=== PATIENT | male | born 1935 | race Caucasian/White ===

== ENCOUNTER 2017-04-29 19:03 | Emergency (ER) | payer MEDICARE, BC ==
--- NOTE | 2017-04-29 20:39 | ED ---
I, Clay,Karli, scribed for Benjamin Hugo MD on 04/29/17 at 1920 . Shortness of Breath - HPI Summary HPI Summary: This 81 y/o male presents to ED for acute SOB since 1200 PM. Positive productive cough with clear sputum, cough-related CP. Cough has been chronicc since 2 months ago, and pt reports having trouble sleeping due to persistent cough. Negative fever. Temperature of 99.6 F is noted at triage. PMHx significant for right lung CA with ongoing chemo. - History of Current Complaint Chief Complaint: EDShortnessOfBreath Time Seen by Provider: 04/29/17 19:14 Hx Obtained From: Patient, Medical Records Onset/Duration: Sudden Onset, Still Present Dyspnea At: Rest Aggrevating Factors: Nothing Alleviating Factors: Nothing Associated Signs & Symptoms: Cough (Productive) - clear sputum, Chest Pain w/ Cough - Allergy/Home Medications Allergies/Adverse Reactions: Allergies Allergy/AdvReac Type Severity Reaction Status Date / Time Ciprofloxacin [From Cipro] Allergy Severe Hives Verified 04/29/17 19:06 Penicillins Allergy Rash Verified 04/29/17 19:06 PMH/Surg Hx/FS Hx/Imm Hx Endocrine/Hematology History: Denies: Hx Diabetes Cardiovascular History: Reports: Other Cardiovascular Problems/Disorders Denies: Hx Congestive Heart Failure, Hx Hypertension Respiratory History: Reports: Hx Lung Cancer, Other Respiratory Problems/ Disorders - LUNG CA History: Reports: Other Problems/Disorders - prostate ca, prostatectomy Denies: Hx Dialysis, Hx Renal Disease Sensory History: Reports: Hx Contacts or Glasses Denies: Hx Cataracts, Hx Eye Injury, Hx Eye Prosthesis, Hx Glaucoma, Hx Legally Blind, Hx Macular Degeneration, Hx Vision Problem, Hx Deafness, Hx Hearing Aid, Hx Hearing Problem, Other Sensory Impairments Opthamlomology History: Reports: Hx Contacts or Glasses Denies: Hx Cataracts, Hx Eye Injury, Hx Eye Prosthesis, Hx Glaucoma, Hx Legally Blind, Hx Macular Degeneration, Hx Vision Problem, Other Sensory Impairments - Cancer History Cancer Type, Location and Year: prostate, basal cell carcinomia of scalp, Hx Chemotherapy: No Hx Radiation Therapy: No Hx Palliative Cancer Treatment: No - Surgical History Surgery Procedure, Year, and Place: prostatectomy, hernia repair Infectious Disease History: No Infectious Disease History: Denies: Hx Clostridium Difficile, Hx Hepatitis, Hx Human Immunodeficiency Virus (HIV), Hx of Known/Suspected MRSA, Hx Shingles, Hx Tuberculosis, Hx Known/ Suspected VRE, Hx Known/Suspected VRSA, History Other Infectious Disease, Traveled Outside the [place] in Last 30 Days - Family History Known Family History: Positive: Cardiac Disease - Father with [place] in age 69. - Social History Alcohol Use: Daily Alcohol Amount: glass of wine daily Substance Use Type: Reports: None Smoking Status (MU): Current Every Day Smoker Type: Cigarettes Review of Systems Negative: Fever Positive: Chest Pain - cough-related Positive: Shortness Of Breath, Cough - productive with clear sputum All Other Systems Reviewed And Are Negative: Yes Physical Exam Triage Information Reviewed: Yes Vital Signs On Initial Exam: Initial Vitals Temp Pulse Resp BP Pulse Ox 99.6 F 97 18 110/56 95 04/29/17 19:09 04/29/17 19:09 04/29/17 19:09 04/29/17 19:09 04/29/17 19:09 Vital Signs Reviewed: Yes Appearance: Positive: Ill-Appearing - chronically, Thin Skin: Positive: Warm Head/Face: Positive: Normal Head/Face Inspection Eyes: Positive: THERON ENT: Positive: Hearing grossly normal Neck: Positive: Supple Respiratory/Lung Sounds: Positive: Breath Sounds Present, Decreased Breath Sounds - mild generalized, Wheezes - occass Cardiovascular: Positive: RRR Abdomen Description: Positive: Nontender, Soft Bowel Sounds: Positive: Present Musculoskeletal: Positive: Strength/ROM Intact Neurological: Positive: Alert, Oriented to Person Place, Time Diagnostics - Vital Signs Vital Signs Temp Pulse Resp BP Pulse Ox 04/29/17 19:09 99.6 F 97 18 110/56 95 - Laboratory Result Diagrams: 04/29/17 20:55 04/29/17 20:55 Lab Statement: Any lab studies that have been ordered have been reviewed, and results considered in the medical decision making process. - Radiology CXR Xray Interpretation: Positive (See Comments) - Hyperinflated lung treviño. Right paratracheal density in the region where prior right peritracheal mass is present. This likely represents post treatment change. Radiology Interpretation Completed By: Radiologist - CT CTA Chest/Thorax CT Interpretation: Positive (See Comments) - Cavitary partially calcified suprahilar mass on the right consistent with neoplasm. Emphysema. Opacified segmental bronchi in the right lower lobe possibly with retained secretions. This may be contributing to the pt's SOB. CT Interpretation Completed By: Radiologist - EKG 1917 Cardiac Rate: NL - 91 bpm EKG Rhythm: Sinus Rhythm Re-Evaluation - Re-Evaluation First Eval Re-Evaluation Time: 21:29 Change: Improved - results d/w pt Comment: Respiratory therapist paged. Course/Dx - Course Assessment/Plan: This 81 y/o male presents to ED for acute onset of SOB since 1200 PM. Positive productive cough with clear sputum and cough-related CP. PMHx is significant for right Lung CA with ongoing chemo. Blood work is unremarkable except mild anemia. CTA chest/thorax is ordered to r/o any blood clotts and noted with: Cavitary partially calcified suprahilar mass on the right consistent with neoplasm. Emphysema. Opacified segmental bronchi in the right lower lobe possibly with retained secretions. This may be contributing to the pt 's SOB. Pt is given duoneb and respiratory therapy treatment during ED course. Pt is discharged home. - Diagnoses Provider Diagnoses: Shortness of breath Discharge - Discharge Plan Condition: Improved Disposition: HOME Patient Education Materials: Dyspnea (ED) Referrals: Liv Van MD [Primary Care Provider] - 2 Days The documentation as recorded by the Clay moreno Soohyun accurately reflects the service I personally performed and the decisions made by me, Benjamin Hugo MD.
--- NOTE | 2017-04-29 20:45 | RAD ---
Indication: Shortness of breath. 2 views of the chest including dual energy PA views demonstrates hyperinflated lung treviño. Nasogastric tube is in place. Right apical and peritracheal thickening is noted. This is most likely due to post radiation change. IMPRESSION: Hyperinflated lung treviño. Right paratracheal density in the region where prior right peritracheal mass is present. This likely represents post treatment change.
[2017-04-29 21:02] LABS: Hematocrit 31 % (42-52); Hemoglobin 10.3 g/dl (14.0-18.0); Mean Corpuscular HGB Conc 33 g/dl (31-36); Mean Corpuscular Hemoglobin 34 pg (27-31); Mean Corpuscular Volume 103 fL (80-94); Mean Platelet Volume 8 um3 (7.4-10.4); Red Cell Distribution Width 21 % (10.5-15); White Blood Count 6.9 10^3/ul (3.5-10.8)
[2017-04-29 21:04] LABS: Add Diff/Slide Review? Slide Review Added; Comments Flag Yes
[2017-04-29 21:17] LABS: Albumin 3.5 g/dL (3.2-5.2); BUN/Creatinine Ratio 21.3 (8-20); Calcium 8.6 mg/dL (8.6-10.3); EGFR African American 99.3 (>60); EGFR Non-African American 77.2 (>60); Globulin 2.6 g/dL (2-4); Total Bilirubin 0.7 mg/dL (0.2-1.0); Total Protein 6.1 g/dL (6.4-8.9)
[2017-04-29 21:19] LABS: Troponin I 0.02 ng/mL (<0.04)
[2017-04-29] MEDS ORDERED: Albuterol/Ipratropium NEB.SOL* Albuterol 2.5 MG/Ipratropium 0.5 MG 3 ML INH ONE (21:28)
[2017-04-29] MEDS ORDERED: Iohexol 350* (CONTRAST) 500 ML MDV IV ONE (22:15)
[2017-04-29] MEDS ORDERED: LORazepam INJ* 2 MG/ML 1 ML VIAL IV PUSH ONE (23:29)
[2017-04-29] MEDS ORDERED: LORazepam INJ* 2 MG/ML 1 ML VIAL ONE (23:31)
[2017-04-30 01:34] VITALS: BP 99/55
--- NOTE | 2017-04-30 07:45 | RAD ---
HISTORY: Acute shortness of breath, history of cancer COMPARISONS: March 01, 2017 TECHNIQUE: Multiple contiguous axial CT scans of the chest were obtained after the administration of nonionic intravenous contrast, timed to the pulmonary arterial phase of contrast enhancement.. Coronal and sagittal multiplanar reformations are also submitted for review. FINDINGS: NECK AND THYROID: The lower neck and thyroid are unremarkable. CHEST WALL: There is no lower cervical, axillary, or supraclavicular lymphadenopathy by size criteria. HEART AND PERICARDIUM: The heart is unremarkable. AORTA AND PULMONARY VASCULATURE: There is no pulmonary arterial filling defect to suggest pulmonary embolism. There is no linear filling defect within the aorta to suggest aortic dissection. There is atherosclerosis of the thoracic aorta which is tortuous. MEDIASTINUM: Again noted is a right para mediastinal mass. This is cavitary and partially calcified. A catheter segment has increased in size compared to March 01, 2017. DB: There is no hilar lymphadenopathy by size criteria. AIRWAY AND ESOPHAGUS: There is opacification of segmental bronchi in the right lower lobe suggestive of mucus plugging LUNG PARENCHYMA: As noted above, there is a right upper lobe paramediastinal mass. There is centrilobular emphysema of the lung apices. PLEURA: No pleural abnormalities are noted. UPPER ABDOMEN: There is a nonobstructing right renal calyceal stone BONES AND SOFT TISSUES: There is a scoliotic curvature of the spine. Degenerative changes are noted. OTHER: None. IMPRESSION: 1. AGAIN NOTED IS A CAVITARY, PARTIALLY CALCIFIED RIGHT UPPER LOBE PARAMEDIASTINAL MASS THE CAVITARY PORTION HAS INCREASED IN SIZE COMPARED TO MARCH 01, 2017. 2. NO PULMONARY ARTERIAL FILLING DEFECT TO SUGGEST PULMONARY WAS. 3. THERE IS OPACIFICATION OF THE SEGMENTAL AIRWAYS OF THE RIGHT LOWER LOBE SUGGESTIVE OF MUCOUS PLUGGING IN THE CORRECT CLINICAL SETTING
== END 2017-04-30 01:33 | disposition home or self-care (01) ==
LOC: ED 19:03
DX: R06.02 Shortness of breath (principal); R05 Cough; C78.01 Secondary malignant neoplasm of right lung; Z85.46 Personal history of malignant neoplasm of prostate; Z90.79 Acquired absence of other genital organ(s); Z88.1 Allergy status to other antibiotic agents; Z88.0 Allergy status to penicillin; F17.210 Nicotine dependence, cigarettes, uncomplicated
CPT/HCPCS: 36415; 71020; 71275; 80053; 83605; 84484; 85025; 93005; 96374; 99284; A9270-GY; J2060; Q9967

== ENCOUNTER 2017-05-03 17:32 | Inpatient (IN) | payer MEDICARE, BC ==
[2017-05-03] MEDS ORDERED: Albuterol/Ipratropium NEB.SOL* Albuterol 2.5 MG/Ipratropium 0.5 MG 3 ML ONE (18:01)
[2017-05-03] MEDS ORDERED: Albuterol/Ipratropium NEB.SOL* Albuterol 2.5 MG/Ipratropium 0.5 MG 3 ML INH ONE (18:21)
[2017-05-03] MEDS ORDERED: methylPREDNISolone 125 MG* 2 ML VIAL IV ONE (18:22)
[2017-05-03] MEDS ORDERED: Albuterol 2.5 MG/3 ML NEB.SOL* (0.083%) INH ONE (18:22)
[2017-05-03] MEDS ORDERED: Albuterol 2.5 MG/3 ML NEB.SOL* (0.083%) ONE (18:23)
[2017-05-03 18:46] LABS: Hematocrit 32 % (42-52); Hemoglobin 10.2 g/dl (14.0-18.0); Mean Corpuscular HGB Conc 32 g/dl (31-36); Mean Corpuscular Hemoglobin 33 pg (27-31); Mean Corpuscular Volume 102 fL (80-94); Mean Platelet Volume 9 um3 (7.4-10.4); Red Cell Distribution Width 20 % (10.5-15)
[2017-05-03 18:47] LABS: Comments Flag Yes
[2017-05-03 18:48] LABS: Add Diff/Slide Review? Slide Review Added
--- NOTE | 2017-05-03 18:57 | RAD ---
INDICATION: Shortness of breath. COMPARISON: Comparison is made with a prior chest x-ray study from April 29, 2017. TECHNIQUE: A portable view of the chest was obtained. FINDINGS: The heart is within normal limits in size. The lungs are hyperinflated. There are infiltrates present at both lung bases most consistent with pneumonia. Air is noted under the right hemidiaphragm which appears to be secondary to interposition of bowel. IMPRESSION: BIBASILAR INFILTRATES MOST CONSISTENT WITH PNEUMONIA.
[2017-05-03 19:04] LABS: Troponin I 0.03 ng/mL (<0.04)
[2017-05-03 19:07] LABS: Albumin 3.4 g/dL (3.2-5.2); BUN/Creatinine Ratio 23.3 (8-20); Calcium 9.8 mg/dL (8.6-10.3); EGFR African American 104.4 (>60); EGFR Non-African American 81.2 (>60); Globulin 2.8 g/dL (2-4); Potassium 4.1 mmol/L (3.5-5.0); Total Bilirubin 0.6 mg/dL (0.2-1.0); Total Protein 6.2 g/dL (6.4-8.9)
[2017-05-03] MEDS ORDERED: Cefepime(*) 2 GM in NS 0.9% 50 ML* 50 ML IVPB ONE (19:16)
[2017-05-03] MEDS ORDERED: Azithromycin IV(*) 500 MG in NS 0.9% 250 ML* 250 ML IVPB ONE (19:17)
[2017-05-03] MEDS ORDERED: HYDROCODONE PO PRN (19:28)
[2017-05-03] MEDS ORDERED: HOMATROPINE PO PRN (19:28)
--- NOTE | 2017-05-03 19:45 | ED ---
Blue Haley Benjamin, scribed for Phong Angulo MD on 05/03/17 at 1835 . Shortness of Breath - HPI Summary HPI Summary: 81yo male c/o SOB. Pt was seen here on Sunday with SOB but was dxed with any acute conditions. Pt reports progressively worsening. Pt is tachypnic and is his O2 sat is in 70s. Pt is too SOB to give much Hx. LEVEL 5 CAVEATS - SOB - History of Current Complaint Chief Complaint: EDShortnessOfBreath Time Seen by Provider: 05/03/17 18:11 Hx Obtained From: Patient, Family/Tire Man - son Hx From Patient Unobtainable Due To: Other - LEVEL 5 CAVEATS - SOB Onset/Duration: Gradual Onset, Lasting Days, Still Present, Worse Since - progressively worsening Current Severity: Moderate Dyspnea At: Rest Aggrevating Factors: Nothing Alleviating Factors: Oxygen Associated Signs & Symptoms: Negative - Allergy/Home Medications Allergies/Adverse Reactions: Allergies Allergy/AdvReac Type Severity Reaction Status Date / Time Ciprofloxacin [From Cipro] Allergy Severe Hives Verified 05/03/17 17:34 Penicillins Allergy Rash Verified 05/03/17 17:34 Home Medications: Home Medications Aspirin EC Low Dose* [Ecotrin EC Low Dose 81 MG*] 81 mg PO DAILY 05/03/17 [ History Confirmed 05/03/17] Dexamethasone TAB* [Decadron TAB*] 4 mg PO DAILY 05/03/17 [History Confirmed ] FLUoxetine CAP* [PROzac CAP*] 10 mg PO DAILY 05/03/17 [History Confirmed ] Hydrocodone W/ Homatropine [Hydromet] 5 ml PO Q6HR PRN 05/03/17 [History Confirmed 05/03/17] Latanoprost 0.005%* [Xalatan 0.005%*] 1 drop RIGHT EYE BEDTIME 05/03/17 [ History Confirmed 05/03/17] PMH/Surg Hx/FS Hx/Imm Hx Endocrine/Hematology History: Denies: Hx Diabetes Cardiovascular History: Reports: Other Cardiovascular Problems/Disorders Denies: Hx Congestive Heart Failure, Hx Hypertension Respiratory History: Reports: Hx Chronic Obstructive Pulmonary Disease (COPD) - hx Lung CA, Hx Lung Cancer, Other Respiratory Problems/Disorders - LUNG CA Denies: Hx Asthma History: Reports: Other Problems/Disorders - prostate ca, prostatectomy Denies: Hx Dialysis, Hx Renal Disease Sensory History: Reports: Hx Contacts or Glasses Denies: Hx Cataracts, Hx Eye Injury, Hx Eye Prosthesis, Hx Glaucoma, Hx Legally Blind, Hx Macular Degeneration, Hx Vision Problem, Hx Deafness, Hx Hearing Aid, Hx Hearing Problem, Other Sensory Impairments Opthamlomology History: Reports: Hx Contacts or Glasses Denies: Hx Cataracts, Hx Eye Injury, Hx Eye Prosthesis, Hx Glaucoma, Hx Legally Blind, Hx Macular Degeneration, Hx Vision Problem, Other Sensory Impairments - Cancer History Cancer Type, Location and Year: prostate, basal cell carcinomia of scalp, Hx Chemotherapy: No Hx Radiation Therapy: No Hx Palliative Cancer Treatment: No - Surgical History Surgery Procedure, Year, and Place: prostatectomy, hernia repair Infectious Disease History: No Infectious Disease History: Denies: Hx Clostridium Difficile, Hx Hepatitis, Hx Human Immunodeficiency Virus (HIV), Hx of Known/Suspected MRSA, Hx Shingles, Hx Tuberculosis, Hx Known/ Suspected VRE, Hx Known/Suspected VRSA, History Other Infectious Disease, Traveled Outside the [place] in Last 30 Days - Family History Known Family History: Positive: Cardiac Disease - Father with [place] in age 69. - Social History Occupation: Retired Lives: Alone Alcohol Use: Daily Alcohol Amount: glass of wine daily Substance Use Type: Reports: None Smoking Status (MU): Current Every Day Smoker Type: Cigarettes Review of Systems - ROS Summary Review of Systems Summary: Limited ROS, LEVEL 5 CAVEATS - SOB Positive: Shortness Of Breath All Other Systems Reviewed And Are Negative: No Physical Exam Triage Information Reviewed: Yes Vital Signs On Initial Exam: Initial Vitals Temp Pulse Resp BP Pulse Ox 99.4 F 108 48 135/38 79 05/03/17 17:35 05/03/17 17:35 05/03/17 17:35 05/03/17 17:35 05/03/17 17:35 Appearance: Positive: Ill-Appearing Skin: Positive: Warm Head/Face: Positive: Normal Head/Face Inspection ENT: Positive: Other - no stridor Neck: Positive: Supple Respiratory/Lung Sounds: Positive: Rhonchi - bialteral bases with wheezes. Increased work of breathing, Unable to speak in full sentences. Negative: Stridor Cardiovascular: Positive: RRR. Negative: Murmur Abdomen Description: Positive: Nontender Musculoskeletal: Positive: Strength/ROM Intact Neurological: Positive: Sensory/Motor Intact, Alert, Oriented to Person Place, Time, CN Intact II-III Psychiatric: Positive: Anxious - Clayton Coma Scale Coma Scale Total: 15 Diagnostics - Vital Signs Vital Signs Temp Pulse Resp BP Pulse Ox 05/03/17 18:25 112 38 89 05/03/17 18:02 103 91 05/03/17 18:00 129/66 05/03/17 17:59 138/75 05/03/17 17:52 99.2 F 110 22 134/66 88 05/03/17 17:35 99.4 F 108 48 135/38 79 - Laboratory Lab Results: Lab Results 05/03/17 05/03/17 05/03/17 Range/Units 18:35 18:35 18:35 WBC 12.0 H (3.5-10.8) 10^3/ul RBC 3.10 L (4.0-5.4) 10^6/ul Hgb 10.2 L (14.0-18.0) g/dl Hct 32 L (42-52) % MCV 102 H (80-94) fL MCH 33 H (27-31) pg MCHC 32 (31-36) g/dl RDW 20 H (10.5-15) % Plt Count 386 (150-450) 10^3/ul MPV 9 (7.4-10.4) um3 Neut % (Auto) 86.7 H (38-83) % Lymph % (Auto) 2.8 L (25-47) % [place] % (Auto) 10.4 H (1-9) % Eos % (Auto) 0 (0-6) % Baso % (Auto) 0.1 (0-2) % Absolute Neuts (auto) 10.4 H (1.5-7.7) 10^3/ul Absolute Lymphs (auto) 0.3 L (1.0-4.8) 10^3/ul Absolute Monos (auto) 1.2 H (0-0.8) 10^3/ul Absolute Eos (auto) 0 (0-0.6) 10^3/ul Absolute Basos (auto) 0 (0-0.2) 10^3/ul Absolute Nucleated RBC 0.09 10^3/ul Nucleated RBC % 0.8 INR (Anticoag Therapy) (0.89-1.11) Sodium 136 (133-145) mmol/L Potassium 4.1 (3.5-5.0) mmol/L Chloride 99 L (101-111) mmol/L Carbon Dioxide 28 (22-32) mmol/L Anion Gap 9 (2-11) mmol/L BUN 21 (6-24) mg/dL Creatinine 0.90 (0.67-1.17) mg/dL Est GFR ( Amer) 104.4 (>60) Est GFR (Non-Af Amer) 81.2 (>60) BUN/Creatinine Ratio 23.3 H (8-20) Glucose 126 H (70-100) mg/dL Lactic Acid 2.0 (0.5-2.0) mmol/L Calcium 9.8 (8.6-10.3) mg/dL Total Bilirubin 0.60 (0.2-1.0) mg/dL AST 21 (13-39) U/L ALT 16 (7-52) U/L Alkaline Phosphatase 71 (34-104) U/L Troponin I 0.03 (<0.04) ng/mL B-Natriuretic Peptide ( - 100) pg/mL Total Protein 6.2 L (6.4-8.9) g/dL Albumin 3.4 (3.2-5.2) g/dL Globulin 2.8 (2-4) g/dL Albumin/Globulin Ratio 1.2 (1-3) 05/03/17 05/03/17 Range/Units 18:35 18:35 WBC (3.5-10.8) 10^3/ul RBC (4.0-5.4) 10^6/ul Hgb (14.0-18.0) g/dl Hct (42-52) % MCV (80-94) fL MCH (27-31) pg MCHC (31-36) g/dl RDW (10.5-15) % Plt Count (150-450) 10^3/ul MPV (7.4-10.4) um3 Neut % (Auto) (38-83) % Lymph % (Auto) (25-47) % [place] % (Auto) (1-9) % Eos % (Auto) (0-6) % Baso % (Auto) (0-2) % Absolute Neuts (auto) (1.5-7.7) 10^3/ul Absolute Lymphs (auto) (1.0-4.8) 10^3/ul Absolute Monos (auto) (0-0.8) 10^3/ul Absolute Eos (auto) (0-0.6) 10^3/ul Absolute Basos (auto) (0-0.2) 10^3/ul Absolute Nucleated RBC 10^3/ul Nucleated RBC % INR (Anticoag Therapy) 1.06 (0.89-1.11) Sodium (133-145) mmol/L Potassium (3.5-5.0) mmol/L Chloride (101-111) mmol/L Carbon Dioxide (22-32) mmol/L Anion Gap (2-11) mmol/L BUN (6-24) mg/dL Creatinine (0.67-1.17) mg/dL Est GFR ( Amer) (>60) Est GFR (Non-Af Amer) (>60) BUN/Creatinine Ratio (8-20) Glucose (70-100) mg/dL Lactic Acid (0.5-2.0) mmol/L Calcium (8.6-10.3) mg/dL Total Bilirubin (0.2-1.0) mg/dL AST (13-39) U/L ALT (7-52) U/L Alkaline Phosphatase (34-104) U/L Troponin I (<0.04) ng/mL B-Natriuretic Peptide 302 H ( - 100) pg/mL Total Protein (6.4-8.9) g/dL Albumin (3.2-5.2) g/dL Globulin (2-4) g/dL Albumin/Globulin Ratio (1-3) Result Diagrams: 05/03/17 18:35 05/03/17 18:35 Lab Statement: Any lab studies that have been ordered have been reviewed, and results considered in the medical decision making process. - Radiology CXR Xray Interpretation: Positive (See Comments) - IMPRESSION: BIBASILAR INFILTRATES MOST CONSISTENT WITH PNEUMONIA. Radiology Interpretation Completed By: Radiologist - EKG 4472. Cardiac Rate: Tachycardia - 105bpm EKG Rhythm: Sinus Tachycardia Re-Evaluation - Re-Evaluation First Eval Re-Evaluation Time: 19:44 Change: Improved Course/Dx - Course Course Of Treatment: Discussed with Dr. Smiley (Hospitalist) at 19:20. Patient dw heme onc and they recommend cefepime. Patient improved after some nebs. - Diagnoses Provider Diagnoses: Lung cancer, Pneumonia of both lower lobes - Critical Care Time Critical Care Time: 30-74 min Discharge - Discharge Plan Condition: Fair Disposition: ADMITTED TO [facility] Referrals: iLv Van MD [Primary Care Provider] - The documentation as recorded by the Blue moreno Benjamin accurately reflects the service I personally performed and the decisions made by Adele ordaz Walter, MD.
[2017-05-03] MEDS ORDERED: guaiFENesin/CODIEN 100MG-10MG* 5 ML UDC PO PRN (19:52)
[2017-05-03] MEDS ORDERED: Ondansetron INJ* 2 MG/ML VIAL IV PRN (19:52)
[2017-05-03] MEDS: cefTRIAXone VIAL(*) 1,000 MG in NS 0.9% 50 ML* 50 ML IVPB SCH (23:24)
[2017-05-03] MEDS: Heparin VIAL(*) 5000 UNITS/ML VIAL (FIVE THOUSAND) SUBCUT SCH (23:25)
[2017-05-03] MEDS: NS 0.9% 1000 ML* 1,000 ML IV SCH (23:25)
[2017-05-03] MEDS: Latanoprost 0.005%* 2.5 ml BTL RIGHT EYE SCH (23:27)
[2017-05-03] MEDS: Morphine INJ* 2 MG/ML 1 ML SYRINGE IV PRN (23:44)
[2017-05-04] MEDS: Morphine INJ* 2 MG/ML 1 ML SYRINGE IV PRN ×2 (03:45→21:37)
--- NOTE | 2017-05-04 05:14 | HP ---
CC: Dr. Liv Van; Dr. Jaiden Tom HISTORY AND PHYSICAL: DATE OF ADMISSION: 05/03/17 PRIMARY CARE PHYSICIAN: Dr. Liv Van. CHIEF COMPLAINT: Shortness of breath. HISTORY OF PRESENT ILLNESS: The patient is an 81-year-old gentlemen who says since last week, appro ximately Sunday, he started getting increasingly short of breath and developed a cough. He says french ry time he coughs, he get nauseated and feels like throwing up, although he has not yet. He denies any fevers or chills, but the pain in his chest is so bad that he has to bend over to help relieve i t. He also says his chest feels tight. He is wheezing more as well. Apparently, on Sunday, he was evaluated with a chest x-ray and CAT scan and blood work and apparently did not show pneumonia at t hat time. He also waiting nebulizer treatment to be delivered tomorrow, but could not wait any long er due to his shortness of breath. In the ED, the patient was evaluated and told to likely have a bi lateral pneumonia. 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 CURRENT MEDICATIONS: 1. Xalatan 0.005% one drop right eye at bedtime. 2. Prozac 10 mg daily. 3. Aspirin 81 mg daily. 5. Hydromet 5 cc every 6 hours as needed. 6. Dexamethasone 4 mg daily. ALLERGIES: He has had an allergy and adverse reaction to CIPRO and PENICILLIN. FAMILY HISTORY: Mother at age 90 from old age. Father at 62 of an [place]. SOCIAL HISTORY: Still smokes 6 cigarettes a day, used to smoke more and has been doing it for almos t 60 years. Does drink vodka and chipewwa about one a day. No recreational drug use. He is a retired school secretary, . He has 2 children. His son, Antony Vallecillo, home [phone] and cell [phone] is his healthcare proxy. REVIEW OF SYSTEMS: A 14-point review of systems was completed with the patient. All pertinent posit kash and negatives are in the history of present illness, otherwise it is negative. PHYSICAL EXAMINATION GENERAL: A pleasant gentleman, lying in bed, in no acute distress. VITAL SIGNS: Temperature 98.2, heart rate 92 beats per minute, respiratory rate 20 breaths per river te, pulse ox 93%, and blood pressure 113/52. HEENT: Normocephalic, atraumatic. Pupils equal, round and reactive to light. Moist mucous membrane s. NECK: Supple. No JVD, bruits, palpable thyroid or lymphadenopathy. LUNGS: Got coarse rhonchi throughout. CARDIOVASCULAR: S1, S2 appreciated. ABDOMEN: Positive bowel sounds in all 4 quadrants. Soft, nontender, and nondistended. EXTREMITIES: No cyanosis or clubbing. +2 pulses bilaterally. NEUROLOGIC: Alert and oriented x3. Moves all extremities. SKIN: No rashes or abnormalities. LAB DATA: White count 12.0, hemoglobin 10.2, hematocrit 32, platelets 386. Sodium was 136, potass ium 4.1, chloride 99, CO2 28, BUN 21, creatinine is 0.90, glucose 126. INR 1.06. Chest x-ray was i nterrupted by Radiology as bibasilar infiltrates most consistent with pneumonia. EKG shows sinus ta chycardia, 105 beats per minute, normal axis, no acute ST-T wave changes. ASSESSMENT AND PLAN: 1. Bibasilar pneumonia. Rocephin 1 g IV daily and Zithromax 500 mg IV daily. Check sputum for C an d S. Urine for legionella and pneumococcal antigen. Tessalon Perles and Robitussin AC for cough. Oxygen as per Respiratory Therapy. 2. Chronic obstructive pulmonary disease, Respiratory-driven protocol. 3. Depression, continue fluoxetine. 4. Lung cancer. Management as per Oncology. 5. DVT prophylaxis. Heparin subcu. 6. The patient is a do not resuscitate. TIME SPENT: Over 75 minutes were spent on this H and P, more than 40 minutes of which were spent in direct [id number] contact with the patient in evaluation, physical exam, counseling, and coordina tion of care. [id number]/[facility] #: [id number]
[2017-05-04] MEDS: Heparin VIAL(*) 5000 UNITS/ML VIAL (FIVE THOUSAND) SUBCUT SCH ×2 (05:26→14:56)
[2017-05-04] MEDS: Aspirin EC Low Dose* 81 MG TAB.EC PO SCH (07:51)
[2017-05-04] MEDS: FLUoxetine CAP* 10 MG PO SCH (07:51)
[2017-05-04] MEDS: NS 0.9% 1000 ML* 1,000 ML IV SCH (07:53)
[2017-05-04] MEDS ORDERED: Dexamethasone TAB* 4 MG PO SCH ×2 (09:00→09:49)
[2017-05-04] MEDS ORDERED: Furosemide IV* 10 MG/ML 2 ML VIAL (20 MG) IV SLOW PU ONE (09:44)
--- NOTE | 2017-05-04 09:51 | PN ---
Progress Note - Progress Note Date of Service: 05/04/17 SOAP: Subjective: []Still SOB and breathing feels very labored. No big change since yesterday. Denies chest pain or pressure. Has been having swelling in ankles for a week or so. Medications: Albuterol/Ipratropium (Duoneb (Albuterol 2.5 Mg/Ipratropium 0.5 Mg)) 1 neb INH [id number] AWAKE [facility] Aspirin (Aspirin Ec Low Dose*) 81 mg PO DAILY [facility] Last Admin: 05/04/17 07:51 Dose: 81 mg Dexamethasone (Decadron Tab*) 4 mg PO DAILY [facility] Fluoxetine HCl (Prozac Cap*) 10 mg PO DAILY [facility] Last Admin: 05/04/17 07:51 Dose: 10 mg Furosemide (Lasix Iv*) 20 mg IV SLOW PU ONCE ONE Stop: 05/04/17 09:45 Guaifenesin/Codeine Phosphate (Robitussin Ac 100mg-10mg*) 5 ml PO Q6H PRN PRN Reason: COUGH Last Admin: 05/03/17 23:25 Dose: 5 ml Heparin Sodium (Porcine) (Heparin Vial(*)) 5,000 units SUBCUT Q8HR [facility] Last Admin: 05/04/17 05:26 Dose: 5,000 units Ceftriaxone Sodium 1,000 mg/ (Sodium Chloride) 50 mls @ 200 mls/hr IVPB Q24H [facility] Last Admin: 05/03/17 23:24 Dose: 200 mls/hr Latanoprost (Xalatan 0.005%*) 1 drop RIGHT EYE BEDTIME [facility] Last Admin: 05/03/17 23:27 Dose: 1 drop Morphine Sulfate (Morphine Inj (Syringe)*) 2 mg IV Q4H PRN PRN Reason: Pain/Respiratory Distress Last Admin: 05/04/17 03:45 Dose: 2 mg Ondansetron HCl (Zofran Inj*) 4 mg IV Q4H PRN PRN Reason: NAUSEA Objective: [] Vital Signs Temp Pulse Resp BP Pulse Ox 97.0 F 66 20 122/61 91 05/04/17 07:40 05/04/17 07:40 05/04/17 08:50 05/04/17 07:40 05/04/17 08:27 A&Ox3, EOMI, JJ, neuro grossly non-focal HRR, distant heart sounds LS rhonchous throughout /c wheezes, dull to percussion bilat. bases, accessory muscle use and notable dyspnea with talking +BS, abd. soft and non-tender +PP=bilat., +2 edema feet, +1 ankles Friable skin, dry Laboratory Results - last 24 hr 05/03/17 05/03/17 05/03/17 18:35 18:35 18:35 WBC 12.0 H RBC 3.10 L Hgb 10.2 L Hct 32 L MCV 102 H MCH 33 H MCHC 32 RDW 20 H Plt Count 386 MPV 9 Neut % (Auto) 86.7 H Lymph % (Auto) 2.8 L Gibson % (Auto) 10.4 H Eos % (Auto) 0 Baso % (Auto) 0.1 Absolute Neuts (auto) 10.4 H Absolute Lymphs (auto) 0.3 L Absolute Monos (auto) 1.2 H Absolute Eos (auto) 0 Absolute Basos (auto) 0 Absolute Nucleated RBC 0.09 Nucleated RBC % 0.8 INR (Anticoag Therapy) Sodium 136 Potassium 4.1 Chloride 99 L Carbon Dioxide 28 Anion Gap 9 BUN 21 Creatinine 0.90 Est GFR ( Amer) 104.4 Est GFR (Non-Af Amer) 81.2 BUN/Creatinine Ratio 23.3 H Glucose 126 H Lactic Acid 2.0 Calcium 9.8 Total Bilirubin 0.60 AST 21 ALT 16 Alkaline Phosphatase 71 Troponin I 0.03 B-Natriuretic Peptide Total Protein 6.2 L Albumin 3.4 Globulin 2.8 Albumin/Globulin Ratio 1.2 05/03/17 05/03/17 18:35 18:35 WBC RBC Hgb Hct MCV MCH MCHC RDW Plt Count MPV Neut % (Auto) Lymph % (Auto) Gibson % (Auto) Eos % (Auto) Baso % (Auto) Absolute Neuts (auto) Absolute Lymphs (auto) Absolute Monos (auto) Absolute Eos (auto) Absolute Basos (auto) Absolute Nucleated RBC Nucleated RBC % INR (Anticoag Therapy) 1.06 Sodium Potassium Chloride Carbon Dioxide Anion Gap BUN Creatinine Est GFR ( Amer) Est GFR (Non-Af Amer) BUN/Creatinine Ratio Glucose Lactic Acid Calcium Total Bilirubin AST ALT Alkaline Phosphatase Troponin I B-Natriuretic Peptide 302 H Total Protein Albumin Globulin Albumin/Globulin Ratio Assessment: []81 yo m with 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 Plan: []1. Pneumonia: cont. Rocephin IV, sputum pending. Add albuterol nebulizer, cont. O2, request Resp. Therapy eval., and follow O2 SAT closely 2. Elevated BNP: possibly r/t acute resp. illness, however with progressive SOB over last several weeks and peripheral edema I would like to be cautious and evaluate for underlying heart failure (small but real risk with Gemcitabine). Will give lasix IV, stop IV fluids, check echo, and repeat BNP in AM. 3. Dehydration (elevated BUN/Cr ratio): received close to 2 L of fluids over last 12 hours and with concern for overload with stop fluids and recheck labs in AM. Enc. PO fluids 4. Lung Cancer: chemo on hold, long standing steroids for unclear reasons (pt. said it was for anxiety or mood), I would like to try weaning off these, however with acute illness will hold off (given stress dose in ER)
[2017-05-04] MEDS: Albuterol/Ipratropium NEB.SOL* Albuterol 2.5 MG/Ipratropium 0.5 MG 3 ML INH SCH ×4 (10:52→22:51)
[2017-05-04] MEDS ORDERED: Perflutren Lipid Microsphere* 3 ML VIAL ONE (12:13)
--- NOTE | 2017-05-04 18:39 | ECHO ---
Patient: HUMERA CONLEY [facility] Rec#: [id number] : 1935 Date: 05/04/2017 Age: 81y Height: 167.64 cm / 66.0 in Weight: 53.98 kg / 119.0 lbs Sex: M BSA: 1.6 Room#: 406 Admit Date#: 05/03/2017 Type: Inpatient Referring: Debbie Ludwig Reading: Scar Henao MD Professor Of Art: Shae Paul RDCS CC: Liv Van MD Transthoracic Echocardiogram Indication: Edema, CHF BP: 122/61 HR: 78 Rhythm: NSR Findings History: Lung cancer with radiation and chemotherapy, COPD, basal cell carcinoma of scalp, prostate cancer. Technical Comments: The study is technically difficult. The study is technically limited due to poor acoustic windows. Completed at 1315. Left Ventricle: The left ventricular chamber size is normal. There is no left ventricular hypertrophy. Global left ventricular wall motion and contractility are within normal limits. There is normal left ventricular systolic function. The estimated ejection fraction is 55-60%. TDS and limited and the endocardium is not well visualized. There is no consistent Doppler evidence of clinically significant diastolic dysfunction. The patient was unable to perform a Valsalva maneuver. Left Atrium: The left atrial chamber size is normal. Right Ventricle: The right ventricular cavity size is normal. The right ventricular global systolic function is normal. Right Atrium: The right atrial cavity size is normal. Aortic Valve: The aortic valve is trileaflet. The aortic valve leaflets are mildly thickened. There is no evidence of aortic regurgitation. There is no evidence of aortic stenosis. Mitral Valve: The mitral valve structure is not well visualized. The mitral valve leaflets are mildly thickened. Tricuspid Valve: The tricuspid valve structure is not well visualized. There is trace tricuspid regurgitation. Unable to estimate the right ventricular systolic pressure. There is no tricuspid stenosis. Pulmonic Valve: The pulmonic valve structure is not well visualized. Pericardium: There is no significant pericardial effusion. Aorta: There is no dilatation of the ascending aorta. The aortic arch is not well visualized. There is no dilation of the aortic root. Pulmonary Artery: The main pulmonary artery is not well visualized. Venous: The inferior vena cava appears normal in size. There is a greater than 50% respiratory change in the inferior vena cava dimension. Contrast: Definity was used to optimize study. 4 mL of diluted Definity was utilized. Intravenous contrast was used to enhance endocardial border definition. Summary: There are no significant changes when compared to the previous study done on 05/17/2015 Conclusions TDS and limited. The study is technically limited due to poor acoustic windows. Completed at 1315. The estimated ejection fraction is 55-60%. TDS and limited and the endocardium is not well visualized. There is trace tricuspid regurgitation. Measurements Name Value Normal Range RVIDd (AP) 2D 2 cm (0.9 - 2.6) RVDdMajor (2D) 3.7 cm (2.2 - 4.4) RAd ISD 4CH 3.8 cm (3.4 - 4.9) RA (A4C)W 4 cm (2.9 - 4.6) IVSd (2D) 0.8 cm (0.6 - 1) LVPWd (2D) 0.9 cm (0.6 - 1) LVIDd (2D) 3.9 cm (3.6 - 5.4) LVIDs (2D) 3.2 cm - LV FS (2D) 17 % (25 - 45) Aortic Annulus 1.9 cm (1.4 - 2.6) Ao root diameter (2D) 3.4 cm (2.1 - 3.5) Ascending Ao 3 cm (2.1 - 3.4) LA dimension (AP) 2D 2.4 cm (2.3 - 3.8) LAd ISD 4CH 4.4 cm (2.9 - 5.3) LA ISD 4CH W 3.9 cm (2.5 - 4.5) Name Value Normal Range LA ESV SP 4CH (A/L) 30 ml - LA ESV SP 2CH (A/L) 16 ml - LA ESV BP (A/L) 23 ml - LA ESV BP (A/L) index 14.12 ml/m2 - LA ESV SP 4CH (MOD) 25 ml - LA ESV SP 2CH (MOD) 17 ml - Name Value Normal Range MV E-wave Vmax 0.92 m/sec - MV deceleration time 241.9 msec - MV A-wave Vmax 0.61 m/sec - MV E:A ratio 1.51 ratio - LV septal e' Vmax 0.08 m/sec - LV lateral e' Vmax 0.07 m/sec - LV E:e' septal ratio 11.5 ratio - LV E:e' lateral ratio 13.14 ratio - Name Value Normal Range AV Vmax 1.07 m/sec - AV VTI 22.6 cm - AV peak gradient 4.57 mmHg - AV mean gradient 2.43 mmHg - LVOT Vmax 0.8 m/sec - LVOT VTI 18.97 cm - LVOT peak gradient 2.56 mmHg - LVOT mean gradient 1.33 mmHg - Name Value Normal Range RAP 8 mmHg - IVC diameter 1.4 cm - Name Value Normal Range PV Vmax 0.55 m/sec - PV peak gradient 1.21 mmHg -
[2017-05-04] MEDS: methylPREDNISolone 125 MG* 2 ML VIAL IV SCH (21:39)
[2017-05-04] MEDS: Latanoprost 0.005%* 2.5 ml BTL RIGHT EYE SCH (21:39)
[2017-05-04] MEDS: traZODone TAB* 50 MG TAB PO PRN (21:39)
[2017-05-04] MEDS: cefTRIAXone VIAL(*) 1,000 MG in NS 0.9% 50 ML* 50 ML IVPB SCH (21:40)
[2017-05-05] MEDS: methylPREDNISolone 125 MG* 2 ML VIAL IV SCH ×2 (01:42→09:53)
[2017-05-05] MEDS: Albuterol/Ipratropium NEB.SOL* Albuterol 2.5 MG/Ipratropium 0.5 MG 3 ML INH SCH ×5 (03:05→19:08)
[2017-05-05] MEDS: Morphine INJ* 2 MG/ML 1 ML SYRINGE IV PRN ×2 (03:47→21:51)
[2017-05-05 06:16] LABS: Hematocrit 28 % (42-52); Hemoglobin 8.9 g/dl (14.0-18.0); Mean Corpuscular HGB Conc 32 g/dl (31-36); Mean Corpuscular Hemoglobin 33 pg (27-31); Mean Corpuscular Volume 101 fL (80-94); Mean Platelet Volume 9 um3 (7.4-10.4); Red Blood Count 2.73 10^6/ul (4.0-5.4); Red Cell Distribution Width 19 % (10.5-15); White Blood Count 12.7 10^3/ul (3.5-10.8)
[2017-05-05 06:17] LABS: Add Diff/Slide Review? Slide Review Added; Comments Flag Yes
[2017-05-05 06:29] LABS: BUN/Creatinine Ratio 30.2 (8-20); Calcium 8.9 mg/dL (8.6-10.3); EGFR African American 157.6 (>60); EGFR Non-African American 122.5 (>60); Globulin 2.6 g/dL (2-4); Potassium 4.2 mmol/L (3.5-5.0); Total Bilirubin 0.3 mg/dL (0.2-1.0); Total Protein 5.6 g/dL (6.4-8.9)
[2017-05-05] MEDS: FLUoxetine CAP* 10 MG PO SCH (07:51)
[2017-05-05] MEDS: CMCS: Pantoprazole TAB (NF) 40 MG TAB PO SCH (07:51)
[2017-05-05] MEDS: Aspirin EC Low Dose* 81 MG TAB.EC PO SCH (07:51)
[2017-05-05] MEDS: Enoxaparin(*) 40 MG/0.4 ML SYR SUBCUT SCH (07:53)
--- NOTE | 2017-05-05 11:38 | PN ---
Progress Note - Progress Note Date of Service: 05/05/17 SOAP: Subjective: []Better today. Breathing a little better. No pain. Not walking much. Wants a walker. Cough continues. Albuterol/Ipratropium (Duoneb (Albuterol 2.5 Mg/Ipratropium 0.5 Mg)) 1 neb INH [id number] AWAKE [facility] Last Admin: 05/05/17 11:08 Dose: Not Given Albuterol/Ipratropium (Duoneb (Albuterol 2.5 Mg/Ipratropium 0.5 Mg)) 1 neb INH [id number] AWAKE [facility] Aspirin (Aspirin Ec Low Dose*) 81 mg PO DAILY [facility] Last Admin: 05/05/17 07:51 Dose: 81 mg Enoxaparin Sodium (Lovenox(*)) 40 mg SUBCUT Q24H [facility] Last Admin: 05/05/17 07:53 Dose: 40 mg Fluoxetine HCl (Prozac Cap*) 10 mg PO DAILY [facility] Last Admin: 05/05/17 07:51 Dose: 10 mg Guaifenesin/Codeine Phosphate (Robitussin Ac 100mg-10mg*) 5 ml PO Q6H PRN PRN Reason: COUGH Last Admin: 05/03/17 23:25 Dose: 5 ml Ceftriaxone Sodium 1,000 mg/ (Sodium Chloride) 50 mls @ 200 mls/hr IVPB Q24H [facility] Last Admin: 05/04/17 21:40 Dose: 200 mls/hr Latanoprost (Xalatan 0.005%*) 1 drop RIGHT EYE BEDTIME [facility] Last Admin: 05/04/17 21:39 Dose: 1 drop Methylprednisolone Sodium Succinate (Solu-Medrol 125mg *) 60 mg IV Q8H [facility] Last Admin: 05/05/17 09:53 Dose: 60 mg Morphine Sulfate (Morphine Inj (Syringe)*) 2 mg IV Q4H PRN PRN Reason: Pain/Respiratory Distress Last Admin: 05/05/17 03:47 Dose: 2 mg Ondansetron HCl (Zofran Inj*) 4 mg IV Q4H PRN PRN Reason: NAUSEA Pantoprazole Sodium (Protonix Tab (Nf)) 40 mg PO DAILY [facility] Last Admin: 05/05/17 07:51 Dose: 40 mg Trazodone HCl (Desyrel Tab*) 50 mg PO BEDTIME PRN PRN Reason: SLEEP Last Admin: 05/04/17 21:39 Dose: 50 mg Objective: [] Vital Signs Temp Pulse Resp BP Pulse Ox 97.3 F 83 22 110/50 93 05/05/17 03:40 05/05/17 07:49 05/05/17 08:12 05/05/17 07:49 05/05/17 07:49 HEENT: mucosa moist, no thrush Crackles both sides, course sounds, no wheezing RRR S1S2 +BS NT ND Ext w/o edema. good pulses. 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 Plan: []1. Pneumonia: Better. Rocephin IV, Add albuterol nebulizer, cont. O2 and respiratory is following. 2. FEN. He is eating, no IVF and lytes stable at this time. Follow. 3. Stress dose steroids, mold in sputum of unclear significance. Change to Prednisone 40 mg daily. Longer term will try and wean off steroids. 4. PT evaluation gait and fit with walker.
[2017-05-05] MEDS: cefTRIAXone VIAL(*) 1,000 MG in NS 0.9% 50 ML* 50 ML IVPB SCH (21:47)
[2017-05-05] MEDS: traZODone TAB* 50 MG TAB PO PRN (21:52)
[2017-05-05] MEDS: Latanoprost 0.005%* 2.5 ml BTL RIGHT EYE SCH (22:00)
[2017-05-06] MEDS: Albuterol/Ipratropium NEB.SOL* Albuterol 2.5 MG/Ipratropium 0.5 MG 3 ML INH SCH ×2 (00:23→07:21)
[2017-05-06] MEDS: FLUoxetine CAP* 10 MG PO SCH (08:07)
[2017-05-06] MEDS: CMCS: Pantoprazole TAB (NF) 40 MG TAB PO SCH (08:07)
[2017-05-06] MEDS: Aspirin EC Low Dose* 81 MG TAB.EC PO SCH (08:07)
[2017-05-06] MEDS: Enoxaparin(*) 40 MG/0.4 ML SYR SUBCUT SCH (08:08)
[2017-05-06] MEDS: Fluconazole 100 MG TAB* TAB PO SCH (08:08)
[2017-05-06] MEDS ORDERED: predniSONE TAB* 20 MG ONE (08:14)
[2017-05-06] MEDS: predniSONE TAB* 20 MG PO SCH (08:15)
[2017-05-06] MEDS ORDERED: predniSONE TAB* 20 MG PO SCH (09:00)
--- NOTE | 2017-05-06 09:02 | RAD ---
INDICATION: Chest pain. Short of breath. Evaluate for pulmonary embolus. Short of breath COMPARISON: Chest x-ray May 03, 2017; CTA chest April 29, 2017 TECHNIQUE: Noncontrast axial source images were obtained from the thoracic inlet to the hemidiaphragms Coronal and sagittal reconstructed images were acquired. CHEST FINDINGS: Neck/thyroid: The visualized neck to include the thyroid appear normal. Chest wall: There are no acute abnormalities of the bony thorax or chest wall. There is no supraclavicular, infraclavicular, or axillary lymphadenopathy. Lungs : There is again a partially calcified, cavitary, right paramediastinal style mass. The soft tissue density mass is unchanged compared to the recent CTA of the chest. There is also new patchy infiltrative change in the medial left lung base and periphery of both lung bases which may reflect a superimposed acute pneumonitis. There are additional chronic areas of scarring right middle lobe and lingular segments with underlying emphysematous changes Cardiomediastinal structures: The heart is normal in size. There is no pericardial effusion. There is no evidence of aortic aneurysm or dissection. There is vascular ectasia and there are intimal calcifications. There is no mediastinal or hilar adenopathy. The esophagus appears normal. Pleura : There are no new pleural-based masses or effusions. Other: Nonobstructive right renal stone. IMPRESSION: 1. Stable right paramediastinal cavitary mass. 2. New interstitial and alveolar change in the medial left lung base and the dependent portions of both lung bases suggests a superimposed acute pneumonitis. 3. Extensive underlying emphysematous changes with areas of chronic scarring. 4. Nonobstructive right renal stone.
--- NOTE | 2017-05-06 10:34 | PN ---
Progress Note - Progress Note Date of Service: 05/06/17 SOAP: Subjective [] More SOB today, struggling in am. Ate some yesterday and was walking in room. Had BM today. Aspirin (Aspirin Ec Low Dose*) 81 mg PO DAILY [facility] Last Admin: 05/06/17 08:07 Dose: 81 mg Enoxaparin Sodium (Lovenox(*)) 40 mg SUBCUT Q24H [facility] Last Admin: 05/06/17 08:08 Dose: 40 mg Fluconazole (Diflucan 100 Mg Tab*) 200 mg PO DAILY [facility] Last Admin: 05/06/17 08:08 Dose: 200 mg Fluoxetine HCl (Prozac Cap*) 10 mg PO DAILY [facility] Last Admin: 05/06/17 08:07 Dose: 10 mg Guaifenesin/Codeine Phosphate (Robitussin Ac 100mg-10mg*) 5 ml PO Q6H PRN PRN Reason: COUGH Last Admin: 05/03/17 23:25 Dose: 5 ml Ceftriaxone Sodium 1,000 mg/ (Sodium Chloride) 50 mls @ 200 mls/hr IVPB Q24H [facility] Last Admin: 05/05/17 21:47 Dose: 200 mls/hr Latanoprost (Xalatan 0.005%*) 1 drop RIGHT EYE BEDTIME [facility] Last Admin: 05/05/17 22:00 Dose: Not Given Levalbuterol HCl (Xopenex 1.25 Mg/0.5 Ml Neb.Randee*) 1.25 mg INH Q2H PRN PRN Reason: SHORTNESS OF BREATH Morphine Sulfate (Morphine Inj (Syringe)*) 2 mg IV Q4H PRN PRN Reason: Pain/Respiratory Distress Last Admin: 05/05/17 21:51 Dose: 2 mg Ondansetron HCl (Zofran Inj*) 4 mg IV Q4H PRN PRN Reason: NAUSEA Pantoprazole Sodium (Protonix Tab (Nf)) 40 mg PO DAILY [facility] Last Admin: 05/06/17 08:07 Dose: 40 mg Prednisone (Deltasone Tab*) 60 mg PO DAILY [facility] Last Admin: 05/06/17 08:15 Dose: 20 mg Trazodone HCl (Desyrel Tab*) 50 mg PO BEDTIME PRN PRN Reason: SLEEP Last Admin: 05/05/17 21:52 Dose: 50 mg Objective: [] Vital Signs Temp Pulse Resp BP Pulse Ox 97.3 F 85 24 120/51 100 05/06/17 03:45 05/06/17 07:39 05/06/17 08:46 05/06/17 07:39 05/06/17 07:39 More SOB this am HEENT: mucosa moist, no thrush Crackles both sides, course sounds, no wheezing RRR S1S2 +BS NT ND Ext w/o edema. good pulses. 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 Breathing worse today then yesterday Plan: []1. Pneumonia: More SOB today Rocephin IV, nebulizer, cont. O2 and respiratory is following. - Did better on solumedrol yesterday, increase Prednisone to 60 mg po daily - Check CT chest 2. FEN. He is eating, no IVF 3. Refusing labs today, not want to get stuck, multiple tries over past few days for each blood draw. PICC tomorrow. 3. ID. Continue Rocephin and add Fluconizole. Discuss with ID tomorrow
[2017-05-06] MEDS: Morphine INJ* 2 MG/ML 1 ML SYRINGE IV PRN (20:25)
[2017-05-06] MEDS: Latanoprost 0.005%* 2.5 ml BTL RIGHT EYE SCH (20:27)
[2017-05-06] MEDS: cefTRIAXone VIAL(*) 1,000 MG in NS 0.9% 50 ML* 50 ML IVPB SCH (23:06)
[2017-05-06] MEDS: Levalbuterol 1.25MG/0.5ML NEB INH PRN (23:34)
[2017-05-07] MEDS: Morphine INJ* 2 MG/ML 1 ML SYRINGE IV PRN ×4 (00:28→15:23)
[2017-05-07] MEDS: Levalbuterol 1.25MG/0.5ML NEB INH PRN (08:28)
[2017-05-07] MEDS: Enoxaparin(*) 40 MG/0.4 ML SYR SUBCUT SCH (10:29)
[2017-05-07] MEDS: predniSONE TAB* 20 MG PO SCH (10:30)
[2017-05-07] MEDS: CMCS: Pantoprazole TAB (NF) 40 MG TAB PO SCH (10:31)
[2017-05-07] MEDS: Aspirin EC Low Dose* 81 MG TAB.EC PO SCH (10:31)
[2017-05-07] MEDS: Fluconazole 100 MG TAB* TAB PO SCH (10:31)
[2017-05-07] MEDS: FLUoxetine CAP* 10 MG PO SCH (10:31)
[2017-05-07] MEDS ORDERED: Voriconazole(*) 200 MG VIAL IV SCH (12:00)
--- NOTE | 2017-05-07 13:33 | CONS ---
CONSULTATION REPORT: DATE OF CONSULT: 05/07/17 REQUESTING PHYSICIAN: Dr. Olmedo. CONSULTING SERVICE: Infectious Disease. REASON FOR CONSULT: Pneumonia. IMPRESSION: 1. Acute hypoxemic respiratory failure in the setting of severe chronic obstructive pulmonary disease and now bilateral infiltrates, left greater than right and to my eye, there is an infiltrate on 05/06/17 CT in the left lung base which could be consistent with a fungal pneumonia and fungus growing in the sputum. I discussed with the patient and the son that this could be colonization of abnormal airway or could be pathogen and given that he is not making significant improvement with treatment for chronic obstructive pulmonary disease exacerbation and community-acquired pneumonia that we should consider this a pathogen. 2. Lung cancer, on chemotherapy. 3. ALLERGY to CIPRO and PENICILLIN, both caused rash. RECOMMENDATION: Voriconazole 6 mg/kg IV every 12 hours x2 doses and 4 mg/kg twice a day IV and then we would switch him over to pills if he is improving. The speciation is pending, but this is usually aspergillus. HISTORY OF PRESENT ILLNESS: This is an 81-year-old male with lung cancer, undergoing chemotherapy, admitted with severe central and left-sided chest pain , cough productive of sputum, no hemoptysis with chills and sweats. He had progressive and severe dyspnea on exertion until he had actually dyspnea at rest. He came to the hospital on 05/03/17. White count 12,000. He had an x- ray that showed bilateral basilar infiltrates and had a CT on 05/06/17 with findings as noted above. He has had corticosteroids with some improvement in his breathing, he is no longer short of breath at rest unless he eats. He is short of breath when he gets up and goes to the bathroom. His chest pain is decreased somewhat. He still has productive cough, no hemoptysis. He has had no fevers or chills. He has not had a fungal infection in the past. PAST MEDICAL HISTORY: 1. Lung cancer, on chemotherapy. 2. Status post radiation therapy for right lung cancer. 3. History of excision of basal cell carcinoma of scalp. 4. Prostate cancer status post prostatectomy. 5. Status post hernia repair. 6. COPD. MEDICATIONS: 1. Aspirin. 2. Enoxaparin. 3. Fluoxetine. 4. Fluconazole. 5. Ceftriaxone 1 g a day. 6. Prednisone 60 mg daily. 7. Trazodone. ALLERGIES: CIPRO and PENICILLIN, both caused rash. FAMILY HISTORY: No recurrent infections. Mother at age 90 from old age. Father at age 62 of an PR. SOCIAL HISTORY: He lives in [place]. He has no travel or sick contacts. No construction or renovation in the house or near his home. He is a current smoker. He is retired and . REVIEW OF SYSTEMS: All negative to a full review of systems except as noted above. PHYSICAL EXAM: Vital Signs: Temperature 36.4, heart rate is 70, respiratory rate is 20, blood pressure is 106/56, and oxygen saturation 100% on 4 L. In general, he is awake, in mild distress, appears short of breath. HEENT: There is no conjunctival hemorrhage. Oropharynx, there are white patches on his tongue. Neurologic: He is oriented x3, follows all commands, moves all his extremities. Neck is supple without nuchal rigidity. Lymph nodes: There is no inguinal, axillary, or epitrochlear lymphadenopathy. Heart: Regular and tachycardic without murmurs. Lungs: There are decreased breath sounds at both bases. There are no wheezes or rales. Abdomen: Soft, nontender, and nondistended. There are bowel sounds present. Skin: There is no rash or splinter hemorrhage. Musculoskeletal: No spine tenderness to palpation. No joint synovitis. DIAGNOSTIC STUDIES/LAB DATA: White blood cell count on 05/05/17 was 12.7, hemoglobin 8.9, platelets 326. Creatinine 0.6. Procalcitonin 1.5. CRP 200. Please see impressions and recommendations outlined above which I have discussed with Dr. Olmedo. Thank you for asking me to see Mr. Vallecillo in consultation. [id number]/[facility] #: [id number] [place]ER[place]
[2017-05-07] MEDS: VORICONAZOLE IVPB SCH ×2 (14:28→20:16)
[2017-05-07] MEDS: NS 0.9% IVPB SCH ×2 (14:28→20:16)
[2017-05-07 14:48] LABS: Hematocrit 28 % (42-52); Mean Corpuscular HGB Conc 33 g/dl (31-36); Mean Corpuscular Hemoglobin 33 pg (27-31); Mean Corpuscular Volume 102 fL (80-94); Mean Platelet Volume 8 um3 (7.4-10.4); Red Blood Count 2.72 10^6/ul (4.0-5.4); Red Cell Distribution Width 20 % (10.5-15); White Blood Count 12.4 10^3/ul (3.5-10.8)
[2017-05-07 14:53] LABS: Add Diff/Slide Review? Slide Review Added; Comments Flag Yes
[2017-05-07 15:08] LABS: Albumin 2.8 g/dL (3.2-5.2); BUN/Creatinine Ratio 33.3 (8-20); Calcium 8.9 mg/dL (8.6-10.3); EGFR African American 166.7 (>60); EGFR Non-African American 129.6 (>60); Globulin 2.4 g/dL (2-4); Magnesium 2.2 mg/dL (1.9-2.7); Potassium 4.5 mmol/L (3.5-5.0); Total Bilirubin 0.3 mg/dL (0.2-1.0); Total Protein 5.2 g/dL (6.4-8.9)
[2017-05-07 15:31] LABS: Basophilic Stippling 1+; Immature Granulocytes 10 % (0-9); Macrocytosis 1+; Metamyelocytes % 3 % (0-2); Myelocytes % 4 % (0-1); Neutrophil % 84 % (38-83); Polychromasia 1+
[2017-05-07] MEDS: Latanoprost 0.005%* 2.5 ml BTL RIGHT EYE SCH (20:14)
[2017-05-07] MEDS: cefTRIAXone VIAL(*) 1,000 MG in NS 0.9% 50 ML* 50 ML IVPB SCH (22:51)
[2017-05-08] MEDS: predniSONE TAB* 20 MG PO SCH (07:44)
[2017-05-08] MEDS: Aspirin EC Low Dose* 81 MG TAB.EC PO SCH (07:44)
[2017-05-08] MEDS: FLUoxetine CAP* 10 MG PO SCH (07:44)
[2017-05-08] MEDS: Enoxaparin(*) 40 MG/0.4 ML SYR SUBCUT SCH (07:44)
[2017-05-08] MEDS: CMCS: Pantoprazole TAB (NF) 40 MG TAB PO SCH (07:44)
[2017-05-08] MEDS: NS 0.9% IVPB SCH ×2 (07:44→20:38)
[2017-05-08] MEDS: VORICONAZOLE IVPB SCH ×2 (07:44→20:38)
[2017-05-08] MEDS ORDERED: Voriconazole(*) 200 MG/20 ML VIAL (after mixing w/ 19 ml SW) IVPB SCH (09:00)
[2017-05-08] MEDS ORDERED: Furosemide IV* 10 MG/ML 2 ML VIAL (20 MG) IV ONE (09:51)
[2017-05-08] MEDS: Morphine INJ* 2 MG/ML 1 ML SYRINGE IV PRN (20:36)
[2017-05-08] MEDS: Latanoprost 0.005%* 2.5 ml BTL RIGHT EYE SCH ×2 (20:36→20:43)
[2017-05-08] MEDS: traZODone TAB* 50 MG TAB PO PRN (20:46)
[2017-05-08] MEDS: cefTRIAXone VIAL(*) 1,000 MG in NS 0.9% 50 ML* 50 ML IVPB SCH (23:18)
[2017-05-09] MEDS: Morphine INJ* 2 MG/ML 1 ML SYRINGE IV PRN ×2 (01:38→22:12)
[2017-05-09 05:28] LABS: Hematocrit 27 % (42-52); Hemoglobin 9.2 g/dl (14.0-18.0); Mean Corpuscular HGB Conc 34 g/dl (31-36); Mean Corpuscular Hemoglobin 34 pg (27-31); Mean Corpuscular Volume 102 fL (80-94); Mean Platelet Volume 9 um3 (7.4-10.4); Red Cell Distribution Width 19 % (10.5-15); White Blood Count 15.8 10^3/ul (3.5-10.8)
[2017-05-09 05:36] LABS: Add Diff/Slide Review? Slide Review Added; Comments Flag Yes
[2017-05-09 05:42] LABS: BUN/Creatinine Ratio 33.3 (8-20); C Reactive Protein 71.82 mg/L (< 5.00); Calcium 8.9 mg/dL (8.6-10.3); EGFR African American 128.9 (>60); EGFR Non-African American 100.2 (>60); Potassium 4.2 mmol/L (3.5-5.0)
[2017-05-09 06:50] LABS: Immature Granulocytes 18 % (0-9); Metamyelocytes % 4 % (0-2); Neutrophil % 74 % (38-83)
[2017-05-09 06:51] LABS: Hypochromasia 1+; Macrocytosis 1+; Microcytosis 1+; Polychromasia 1+
[2017-05-09] MEDS: NS 0.9% IVPB SCH ×2 (10:23→22:13)
[2017-05-09] MEDS: VORICONAZOLE IVPB SCH ×2 (10:23→22:13)
[2017-05-09] MEDS: Aspirin EC Low Dose* 81 MG TAB.EC PO SCH (10:25)
[2017-05-09] MEDS: FLUoxetine CAP* 10 MG PO SCH (10:25)
[2017-05-09] MEDS: predniSONE TAB* 20 MG PO SCH (10:25)
[2017-05-09] MEDS: CMCS: Pantoprazole TAB (NF) 40 MG TAB PO SCH (10:25)
[2017-05-09] MEDS: Enoxaparin(*) 40 MG/0.4 ML SYR SUBCUT SCH (10:25)
--- NOTE | 2017-05-09 10:39 | PN ---
Progress Note - Progress Note Date of Service: 05/09/17 SOAP: Subjective: feels very weak. episode of hypoxia last night seemingly related to mucous plugging. better today and down to 5L satting high 90s. only out of bed to bathroom. Objective: Vital Signs Temp Pulse Resp BP Pulse Ox 98.4 F 78 16 100/86 98 05/09/17 02:12 05/09/17 08:46 05/09/17 08:46 05/09/17 02:12 05/09/17 08:46 perr eomi op very dry, +thrush diffuse rhonchi s1 s2 distant soft nt +bs trace-1+ LE edema A+O x 3, nonfocal neurological exam Laboratory Results - last 24 hr 05/09/17 05/09/17 05:20 05:22 WBC 15.8 H RBC 2.70 L Hgb 9.2 L Hct 27 L MCV 102 H MCH 34 H MCHC 34 RDW 19 H Plt Count 287 MPV 9 Immature Gran % (Auto) 18 H Neut % (Auto) 86.9 H Lymph % (Auto) 3.7 L Forrest % (Auto) 8.6 Eos % (Auto) 0.1 Baso % (Auto) 0.7 Absolute Neuts (auto) 13.8 H Absolute Lymphs (auto) 0.6 L Absolute Monos (auto) 1.4 H Absolute Eos (auto) 0 Absolute Basos (auto) 0.1 Absolute Nucleated RBC 0.18 Neutrophils % 74 Band Neutrophils % 14 H Lymphocytes % 3 L Monocytes % 5 Metamyelocytes % 4 H Nucleated RBC % 1.1 Nucleated RBCs/100 WBC 1 H Normal RBC Morphology Not Reportable Polychromasia 1+ Hypochromasia 1+ Microcytosis 1+ Macrocytosis 1+ Sodium 138 Potassium 4.2 Chloride 95 L Carbon Dioxide 39 H Anion Gap 4 BUN 25 H Creatinine 0.75 Est GFR ( Amer) 128.9 Est GFR (Non-Af Amer) 100.2 BUN/Creatinine Ratio 33.3 H Glucose 90 Calcium 8.9 C-Reactive Protein 71.82 H Aspirin (Aspirin Ec Low Dose*) 81 mg PO DAILY [facility] Last Admin: 05/08/17 07:44 Dose: 81 mg Enoxaparin Sodium (Lovenox(*)) 40 mg SUBCUT Q24H [facility] Last Admin: 05/08/17 07:44 Dose: 40 mg Fluoxetine HCl (Prozac Cap*) 10 mg PO DAILY [facility] Last Admin: 05/08/17 07:44 Dose: 10 mg Guaifenesin/Codeine Phosphate (Robitussin Ac 100mg-10mg*) 5 ml PO Q6H PRN PRN Reason: COUGH Last Admin: 05/03/17 23:25 Dose: 5 ml Heparin Sodium (Porcine) (Heparin Flush Picc/Ml/Cvc(*)) 0 ml IV FLUSH 0600, 1800 [facility] PRN Reason: Protocol Last Admin: 05/09/17 05:12 Dose: 1 ml Ceftriaxone Sodium 1,000 mg/ (Sodium Chloride) 50 mls @ 200 mls/hr IVPB Q24H [facility] Last Admin: 05/08/17 23:18 Dose: 200 mls/hr Voriconazole 250 mg/ Sodium (Chloride) 125 mls @ 81.13 mls/hr IVPB Q12HR [facility] PRN Reason: 3 MG/KG/HR Last Admin: 05/08/17 20:38 Dose: 81.13 mls/hr Latanoprost (Xalatan 0.005%*) 1 drop RIGHT EYE BEDTIME [facility] Last Admin: 05/08/17 20:43 Dose: Not Given Levalbuterol HCl (Xopenex 1.25 Mg/0.5 Ml Neb.Randee*) 1.25 mg INH Q2H PRN PRN Reason: SHORTNESS OF BREATH Last Admin: 05/07/17 08:28 Dose: 1.25 mg Morphine Sulfate (Morphine Inj (Syringe)*) 2 mg IV Q4H PRN PRN Reason: Pain/Respiratory Distress Last Admin: 05/09/17 01:38 Dose: 2 mg Nystatin (Nystatin Suspension*) 1,000,000 units PO QID [facility] Stop: 05/16/17 10:28 Ondansetron HCl (Zofran Inj*) 4 mg IV Q4H PRN PRN Reason: NAUSEA Pantoprazole Sodium (Protonix Tab (Nf)) 40 mg PO DAILY [facility] Last Admin: 05/08/17 07:44 Dose: 40 mg Prednisone (Deltasone Tab*) 60 mg PO DAILY [facility] Last Admin: 05/08/17 07:44 Dose: 60 mg Trazodone HCl (Desyrel Tab*) 50 mg PO BEDTIME PRN PRN Reason: SLEEP Last Admin: 05/08/17 20:46 Dose: 50 mg Assessment: 81 yo M w lung CA on palliative therapy admitted with PNA, questionably fungal. Currently on voriconazole. Plan: -cont voriconazole and ceftriaxone, appreciate ID consultation -cont prednisone for respiratory distress -cont nebs prn -taper O2 down as tolerated for goal O2 sat >90% -encourage OOB to chair, discussed with nursing. PT consult -will hold off on hydration today to allow to equilibrate after lasix yesterday but appears dry on exam. encouraged PO intake. -lovenox sc DVT prophylaxis -DNR
--- NOTE | 2017-05-09 12:13 | PN ---
Progress Note - Progress Note Date of Service: 05/09/17 SOAP: Subjective: CC: cough HPI: 81 yo man with lung cancer, palliative chemotherapy, admitted with CP, cough, and dyspnea. CP mostly gone, ongoing cough, no fever or chills. Incr O2 requirement overnight. No rash or diarrhea. Objective: [] Vital Signs Temp 36.9 C 05/09/17 02:12 Pulse 78 05/09/17 08:46 Resp 16 05/09/17 08:46 BP 100/86 05/09/17 02:12 Pulse Ox 98 05/09/17 08:46 Intake & Output 05/08/17 05/09/17 05/09/17 18:59 06:59 18:59 Intake Total 1100 645 240 Balance 1100 645 240 Intake: IV Fluids 60 NS (0.9%) 60 IVPB 185 ABX - CEFTRIAXONE 55 voriconazole 130 Oral 1100 400 240 Other: Estimated Void Medium Medium # Bowel Movements 1 # Voids 3 2 Gen:awake, no distress HEENT:PERRL, MMM Neck:Supple Heart:RRR no murmur Lungs:expiratory rhonchi BL Abd:+BS NTND soft Skin: no rash Laboratory Results - last 24 hr 05/09/17 05/09/17 05:20 05:22 WBC 15.8 H RBC 2.70 L Hgb 9.2 L Hct 27 L MCV 102 H MCH 34 H MCHC 34 RDW 19 H Plt Count 287 MPV 9 Immature Gran % (Auto) 18 H Neut % (Auto) 86.9 H Lymph % (Auto) 3.7 L [place] % (Auto) 8.6 Eos % (Auto) 0.1 Baso % (Auto) 0.7 Absolute Neuts (auto) 13.8 H Absolute Lymphs (auto) 0.6 L Absolute Monos (auto) 1.4 H Absolute Eos (auto) 0 Absolute Basos (auto) 0.1 Absolute Nucleated RBC 0.18 Neutrophils % 74 Band Neutrophils % 14 H Lymphocytes % 3 L Monocytes % 5 Metamyelocytes % 4 H Nucleated RBC % 1.1 Nucleated RBCs/100 WBC 1 H Normal RBC Morphology Not Reportable Polychromasia 1+ Hypochromasia 1+ Microcytosis 1+ Macrocytosis 1+ Sodium 138 Potassium 4.2 Chloride 95 L Carbon Dioxide 39 H Anion Gap 4 BUN 25 H Creatinine 0.75 Est GFR ( Amer) 128.9 Est GFR (Non-Af Amer) 100.2 BUN/Creatinine Ratio 33.3 H Glucose 90 Calcium 8.9 C-Reactive Protein 71.82 H Assessment: 1. Pneumonia; dense L lower lobe consolidation and mild neutropenia, mold in sputum, Aspergillosis a consideration (vs colonization of airways) 2. acute hypoxemic respiratory failure, present on admission 3. COPD 4. lung cancer, chemotherapy Plan: 1. continue voriconaozle 4 mg/kg IV Q12 hrs and ceftriaxone, tolerating both well. Corticosteroids and nebulizers per onology. Discussed with Dr Aponte.
[2017-05-09] MEDS: Nystatin SUSPENSION* 100000 UNITS/ML 5 ML UDC PO SCH ×3 (14:31→22:12)
[2017-05-09] MEDS: traZODone TAB* 50 MG TAB PO PRN (22:13)
[2017-05-09] MEDS: Latanoprost 0.005%* 2.5 ml BTL RIGHT EYE SCH (22:13)
[2017-05-09] MEDS: cefTRIAXone VIAL(*) 1,000 MG in NS 0.9% 50 ML* 50 ML IVPB SCH (23:58)
[2017-05-10 06:51] LABS: Hematocrit 25 % (42-52); Hemoglobin 8.3 g/dl (14.0-18.0); Mean Corpuscular HGB Conc 33 g/dl (31-36); Mean Corpuscular Hemoglobin 34 pg (27-31); Mean Corpuscular Volume 102 fL (80-94); Mean Platelet Volume 9 um3 (7.4-10.4); Red Blood Count 2.47 10^6/ul (4.0-5.4); Red Cell Distribution Width 19 % (10.5-15); White Blood Count 11.4 10^3/ul (3.5-10.8)
[2017-05-10 06:52] LABS: Add Diff/Slide Review? Slide Review Added; Comments Flag Yes
[2017-05-10 07:07] LABS: Albumin 2.7 g/dL (3.2-5.2); BUN/Creatinine Ratio 34.4 (8-20); Calcium 8.7 mg/dL (8.6-10.3); EGFR African American 154.8 (>60); EGFR Non-African American 120.3 (>60); Globulin 2.4 g/dL (2-4); Total Bilirubin 0.3 mg/dL (0.2-1.0); Total Protein 5.1 g/dL (6.4-8.9)
[2017-05-10 07:46] LABS: Immature Granulocytes 6 % (0-9); Microcytosis 1+; Myelocytes % 5 % (0-1); Neutrophil % 81 % (38-83); Polychromasia 1+
[2017-05-10] MEDS: FLUoxetine CAP* 10 MG PO SCH (09:13)
[2017-05-10] MEDS: Aspirin EC Low Dose* 81 MG TAB.EC PO SCH (09:13)
[2017-05-10] MEDS: CMCS: Pantoprazole TAB (NF) 40 MG TAB PO SCH (09:13)
[2017-05-10] MEDS: NS 0.9% IVPB SCH ×2 (09:13→21:19)
[2017-05-10] MEDS: VORICONAZOLE IVPB SCH ×2 (09:13→21:19)
[2017-05-10] MEDS: predniSONE TAB* 20 MG PO SCH (09:13)
[2017-05-10] MEDS: Nystatin SUSPENSION* 100000 UNITS/ML 5 ML UDC PO SCH ×5 (09:13→21:27)
[2017-05-10] MEDS: Enoxaparin(*) 40 MG/0.4 ML SYR SUBCUT SCH (09:14)
--- NOTE | 2017-05-10 11:26 | PN ---
Progress Note - Progress Note Date of Service: 05/10/17 SOAP: Subjective: []Feeling a little better today. Was able to cough up some mucus and felt better. Still very SOB, difficulty with any movement. Sleeping laying down in hospial and he thinks that make him worse. At home sleeps in recliner. Aspirin (Aspirin Ec Low Dose*) 81 mg PO DAILY [facility] Last Admin: 05/10/17 09:13 Dose: 81 mg Enoxaparin Sodium (Lovenox(*)) 40 mg SUBCUT Q24H [facility] Last Admin: 05/10/17 09:14 Dose: 40 mg Fluoxetine HCl (Prozac Cap*) 10 mg PO DAILY [facility] Last Admin: 05/10/17 09:13 Dose: 10 mg Guaifenesin/Codeine Phosphate (Robitussin Ac 100mg-10mg*) 5 ml PO Q6H PRN PRN Reason: COUGH Last Admin: 05/03/17 23:25 Dose: 5 ml Heparin Sodium (Porcine) (Heparin Flush Picc/Ml/Cvc(*)) 0 ml IV FLUSH 0600, 1800 [facility] PRN Reason: Protocol Last Admin: 05/10/17 06:16 Dose: 1 ml Ceftriaxone Sodium 1,000 mg/ (Sodium Chloride) 50 mls @ 200 mls/hr IVPB Q24H [facility] Last Admin: 05/09/17 23:58 Dose: 200 mls/hr Voriconazole 250 mg/ Sodium (Chloride) 125 mls @ 81.13 mls/hr IVPB Q12HR [facility] PRN Reason: 3 MG/KG/HR Last Admin: 05/10/17 09:13 Dose: 81.13 mls/hr Latanoprost (Xalatan 0.005%*) 1 drop RIGHT EYE BEDTIME [facility] Last Admin: 05/09/17 22:13 Dose: Not Given Levalbuterol HCl (Xopenex 1.25 Mg/0.5 Ml Neb.Randee*) 1.25 mg INH Q2H PRN PRN Reason: SHORTNESS OF BREATH Last Admin: 05/07/17 08:28 Dose: 1.25 mg Morphine Sulfate (Morphine Inj (Syringe)*) 2 mg IV Q4H PRN PRN Reason: Pain/Respiratory Distress Last Admin: 05/09/17 22:12 Dose: 2 mg Nystatin (Nystatin Suspension*) 1,000,000 units PO QID [facility] Stop: 05/16/17 10:28 Last Admin: 05/10/17 09:13 Dose: 1,000,000 units Ondansetron HCl (Zofran Inj*) 4 mg IV Q4H PRN PRN Reason: NAUSEA Pantoprazole Sodium (Protonix Tab (Nf)) 40 mg PO DAILY [facility] Last Admin: 05/10/17 09:13 Dose: 40 mg Prednisone (Deltasone Tab*) 60 mg PO DAILY [facility] Last Admin: 05/10/17 09:13 Dose: 60 mg Trazodone HCl (Desyrel Tab*) 50 mg PO BEDTIME PRN PRN Reason: SLEEP Last Admin: 05/09/17 22:13 Dose: 50 mg Objective: [] Vital Signs Temp Pulse Resp BP Pulse Ox 97.2 F 77 16 107/56 100 05/10/17 07:57 05/10/17 07:57 05/10/17 07:57 05/10/17 07:57 05/10/17 07:57 HEENT - no thrush, venous distension. neck with mild use of accessory muscles. Decreased BS, no wheezing, scattered crackles. ext clubbing Neuro NF and AAOx3 Hgb 8.3 Assessment: 81 yo M w lung CA on palliative therapy admitted with PNA, questionably fungal. Currently on voriconazole and seems to be improving. Plan: 1. SOB. Better but still very difficulty - continue voriconazole and ceftriaxone. - Discuss with ID antibiotics for possible NHP tomorrow. - Prednisone at 60, will taper to 50 mg today. -cont nebs prn -2 PRN at Sat to > 88% 2. Walk today, will see if can sleep in recliner tonight. 3. NHP tomorrow 4. Anemia. Will check iron, transfuse 1 U PRBC 5. No diuretics and no fluds, see if handles blood. 6. Lovenox sc DVT prophylaxis 7. DNR/DNI
[2017-05-10] MEDS: Latanoprost 0.005%* 2.5 ml BTL RIGHT EYE SCH (21:18)
[2017-05-10] MEDS: Morphine INJ* 2 MG/ML 1 ML SYRINGE IV PRN (21:19)
[2017-05-10] MEDS: cefTRIAXone VIAL(*) 1,000 MG in NS 0.9% 50 ML* 50 ML IVPB SCH (23:30)
[2017-05-11 06:52] LABS: Add Diff/Slide Review? Slide Review Added; Comments Flag Yes; Hematocrit 25 % (42-52); Hemoglobin 8.1 g/dl (14.0-18.0); Mean Corpuscular HGB Conc 33 g/dl (31-36); Mean Corpuscular Hemoglobin 33 pg (27-31); Mean Corpuscular Volume 102 fL (80-94); Mean Platelet Volume 9 um3 (7.4-10.4); Red Blood Count 2.42 10^6/ul (4.0-5.4); Red Cell Distribution Width 19 % (10.5-15); White Blood Count 9.5 10^3/ul (3.5-10.8)
[2017-05-11 07:20] LABS: Hypochromasia 1+; Immature Granulocytes 7 % (0-9); Metamyelocytes % 1 % (0-2); Myelocytes % 4 % (0-1); Neutrophil % 84 % (38-83); Polychromasia 1+
[2017-05-11] MEDS: Nystatin SUSPENSION* 100000 UNITS/ML 5 ML UDC PO SCH ×6 (09:00→21:43)
[2017-05-11] MEDS: predniSONE TAB* 20 MG PO SCH (09:00)
[2017-05-11] MEDS: CMCS: Pantoprazole TAB (NF) 40 MG TAB PO SCH (09:00)
[2017-05-11] MEDS: Aspirin EC Low Dose* 81 MG TAB.EC PO SCH (09:00)
[2017-05-11] MEDS: VORICONAZOLE IVPB SCH (09:00)
[2017-05-11] MEDS: NS 0.9% IVPB SCH (09:00)
[2017-05-11] MEDS: FLUoxetine CAP* 10 MG PO SCH (09:00)
[2017-05-11] MEDS: Enoxaparin(*) 40 MG/0.4 ML SYR SUBCUT SCH (09:00)
--- NOTE | 2017-05-11 10:25 | PN ---
Progress Note - Progress Note Date of Service: 05/11/17 SOAP: Subjective: []Seen and examined this AM. Still feels "crummy" and denies any improvement. "I'm just chugging a long." Has a lot of swelling and right arm is weeping through dressings. Last night refused blood, but today is willing to agree. Medications: Aspirin (Aspirin Ec Low Dose*) 81 mg PO DAILY [facility] Last Admin: 05/11/17 09:00 Dose: 81 mg Enoxaparin Sodium (Lovenox(*)) 40 mg SUBCUT Q24H [facility] Last Admin: 05/11/17 09:00 Dose: 40 mg Fluoxetine HCl (Prozac Cap*) 10 mg PO DAILY [facility] Last Admin: 05/11/17 09:00 Dose: 10 mg Guaifenesin/Codeine Phosphate (Robitussin Ac 100mg-10mg*) 5 ml PO Q6H PRN PRN Reason: COUGH Last Admin: 05/03/17 23:25 Dose: 5 ml Heparin Sodium (Porcine) (Heparin Flush Picc/Ml/Cvc(*)) 0 ml IV FLUSH 0600, 1800 [facility] PRN Reason: Protocol Last Admin: 05/11/17 06:27 Dose: 1 ml Ceftriaxone Sodium 1,000 mg/ (Sodium Chloride) 50 mls @ 200 mls/hr IVPB Q24H [facility] Last Admin: 05/10/17 23:30 Dose: 200 mls/hr Voriconazole 250 mg/ Sodium (Chloride) 125 mls @ 81.13 mls/hr IVPB Q12HR [facility] PRN Reason: 3 MG/KG/HR Last Admin: 05/11/17 09:00 Dose: 81.13 mls/hr Ipratropium [place] (Atrovent 0.5 Mg Neb.Randee*) 0.5 mg INH [id number] AWAKE [facility] Latanoprost (Xalatan 0.005%*) 1 drop RIGHT EYE BEDTIME [facility] Last Admin: 05/10/17 21:18 Dose: Not Given Levalbuterol HCl (Xopenex 1.25 Mg/0.5 Ml Neb.Randee*) 1.25 mg INH Q2H PRN PRN Reason: SHORTNESS OF BREATH Last Admin: 05/07/17 08:28 Dose: 1.25 mg Nystatin (Nystatin Suspension*) 1,000,000 units PO QID [facility] Stop: 05/16/17 10:28 Last Admin: 05/11/17 09:50 Dose: Not Given Ondansetron HCl (Zofran Inj*) 4 mg IV Q4H PRN PRN Reason: NAUSEA Pantoprazole Sodium (Protonix Tab (Nf)) 40 mg PO DAILY [facility] Last Admin: 05/11/17 09:00 Dose: 40 mg Prednisone (Deltasone Tab*) 60 mg PO DAILY [facility] Last Admin: 05/11/17 09:00 Dose: 60 mg Fluticasone/Salmeterol (Advair Diskus 250-50*) 1 puff INH BID [facility] Trazodone HCl (Desyrel Tab*) 50 mg PO BEDTIME PRN PRN Reason: SLEEP Last Admin: 05/09/17 22:13 Dose: 50 mg Objective: [] Vital Signs Temp Pulse Resp BP Pulse Ox 97.7 F 74 24 95/59 98 05/11/17 07:41 05/11/17 09:27 05/11/17 09:27 05/11/17 07:41 05/11/17 09:27 A&Ox3, EOMI, JJ HRR, distant heart sounds LS harsh crackles R>L base, wet cough, accessory muscle use +BS +2 edema bilat. UE, weeping right PICC RUE, infusing Bilat. feet +1 edema Laboratory Results - last 24 hr 05/10/17 05/11/17 06:00 06:30 WBC 9.5 RBC 2.42 L Hgb 8.1 L Hct 25 L MCV 102 H MCH 33 H MCHC 33 RDW 19 H Plt Count 218 MPV 9 Immature Gran % (Auto) 7 Neut % (Auto) 82.7 Lymph % (Auto) 5.2 L [place] % (Auto) 11.5 H Eos % (Auto) 0.4 Baso % (Auto) 0.2 Absolute Neuts (auto) 7.9 H Absolute Lymphs (auto) 0.5 L Absolute Monos (auto) 1.1 H Absolute Eos (auto) 0 Absolute Basos (auto) 0 Absolute Nucleated RBC 0.07 Neutrophils % 84 H Band Neutrophils % 2 Lymphocytes % 5 L Monocytes % 4 Metamyelocytes % 1 Myelocytes % 4 H Nucleated RBC % 0.7 Nucleated RBCs/100 WBC 1 H Normal RBC Morphology Not Reportable Polychromasia 1+ Hypochromasia 1+ Blood Type A Positive Antibody Screen Negative Crossmatch See Detail Assessment: []81 yo male with pancreatic cancer stable by imaging admitted with SOB and found to have fungal pneumonia, however limited improvement since addition of anti-fungal. Underlying emphysema with question of pneumonitis on CT and now significant edema despite normal EF on echo during admission. Plan: []1. PNA: coverage per abx., but may be able to transition to PO (s/p 9 days IV abx. and day 4 Voriconazole) 2. Emphysema/pneumonitis: may be underlying cause of SOB therefore will add inh. LABA with steroid and start anti-cholinergic nebs 3. Edema: may be partially r/t steroids and now day 5 so will start taper by decrease 10 mg 4. Weakness: d/c to sub acute rehab, cont. PT as tolerated 5. Lung Cancer: chemo on hold, although imaging [facility] most recently
[2017-05-11] MEDS: Mometasone/Formoter 200/5 MDI INH SCH ×2 (11:17→19:44)
[2017-05-11] MEDS: Ipratropium 0.5MG/2.5ML NEB* 0.5 MG/2.5 ML NEB.SOLN INH SCH ×4 (11:17→22:31)
[2017-05-11] MEDS: VORICONAZOLE 50 MG PO SCH (21:43)
[2017-05-11] MEDS: cefTRIAXone VIAL(*) 1,000 MG in NS 0.9% 50 ML* 50 ML IVPB SCH (21:43)
[2017-05-11] MEDS: Latanoprost 0.005%* 2.5 ml BTL RIGHT EYE SCH (21:43)
[2017-05-12] MEDS: Ipratropium 0.5MG/2.5ML NEB* 0.5 MG/2.5 ML NEB.SOLN INH SCH ×6 (02:45→23:05)
[2017-05-12] MEDS: Mometasone/Formoter 200/5 MDI INH SCH ×2 (07:25→19:23)
[2017-05-12] MEDS: predniSONE TAB* 50 MG PO SCH (09:17)
[2017-05-12] MEDS: CMCS: Pantoprazole TAB (NF) 40 MG TAB PO SCH (09:17)
[2017-05-12] MEDS: FLUoxetine CAP* 10 MG PO SCH (09:17)
[2017-05-12] MEDS: Aspirin EC Low Dose* 81 MG TAB.EC PO SCH (09:17)
[2017-05-12] MEDS: Enoxaparin(*) 40 MG/0.4 ML SYR SUBCUT SCH (09:18)
[2017-05-12] MEDS: VORICONAZOLE 50 MG PO SCH ×2 (09:18→21:39)
[2017-05-12] MEDS: Nystatin SUSPENSION* 100000 UNITS/ML 5 ML UDC PO SCH ×4 (09:18→21:39)
--- NOTE | 2017-05-12 09:20 | PN ---
Progress Note - Progress Note Date of Service: 05/12/17 SOAP: Subjective: feels weak. no focal complaints Objective: Vital Signs Temp Pulse Resp BP Pulse Ox 97.6 F 78 18 108/59 98 05/12/17 03:32 05/12/17 07:25 05/12/17 07:25 05/12/17 03:32 05/12/17 07:25 perr eomi op dry mild rhonchi (certainly better) s1 s2 nl soft nt +bs globally weak but nonfocal anasarcic Laboratory Results - last 24 hr 05/10/17 05/11/17 06:00 11:00 Prealbumin 11 L Blood Type A Positive Antibody Screen Negative Crossmatch See Detail Aspirin (Aspirin Ec Low Dose*) 81 mg PO DAILY [facility] Last Admin: 05/11/17 09:00 Dose: 81 mg Enoxaparin Sodium (Lovenox(*)) 40 mg SUBCUT Q24H [facility] Last Admin: 05/11/17 09:00 Dose: 40 mg Fluoxetine HCl (Prozac Cap*) 10 mg PO DAILY [facility] Last Admin: 05/11/17 09:00 Dose: 10 mg Guaifenesin/Codeine Phosphate (Robitussin Ac 100mg-10mg*) 5 ml PO Q6H PRN PRN Reason: COUGH Last Admin: 05/03/17 23:25 Dose: 5 ml Heparin Sodium (Porcine) (Heparin Flush Picc/Ml/Cvc(*)) 0 ml IV FLUSH 0600, 1800 [facility] PRN Reason: Protocol Last Admin: 05/12/17 07:19 Dose: 1 ml Ceftriaxone Sodium 1,000 mg/ (Sodium Chloride) 50 mls @ 200 mls/hr IVPB Q24H [facility] Last Admin: 05/11/17 21:43 Dose: 200 mls/hr Ipratropium [place] (Atrovent 0.5 Mg Neb.Randee*) 0.5 mg INH [id number] AWAKE [facility] Last Admin: 05/12/17 07:25 Dose: Not Given Latanoprost (Xalatan 0.005%*) 1 drop RIGHT EYE BEDTIME [facility] Last Admin: 05/11/17 21:43 Dose: Not Given Levalbuterol HCl (Xopenex 1.25 Mg/0.5 Ml Neb.Randee*) 1.25 mg INH Q2H PRN PRN Reason: SHORTNESS OF BREATH Last Admin: 05/07/17 08:28 Dose: 1.25 mg Mometasone Furoate/Formoterol Fumar (Dulera 200/5 Mdi*) 2 puff INH BID [facility] Last Admin: 05/12/17 07:25 Dose: Not Given Nystatin (Nystatin Suspension*) 1,000,000 units PO QID [facility] Stop: 05/16/17 10:28 Last Admin: 05/11/17 21:43 Dose: Not Given Ondansetron HCl (Zofran Inj*) 4 mg IV Q4H PRN PRN Reason: NAUSEA Pantoprazole Sodium (Protonix Tab (Nf)) 40 mg PO DAILY [facility] Last Admin: 05/11/17 09:00 Dose: 40 mg Prednisone (Deltasone Tab*) 50 mg PO DAILY [facility] Trazodone HCl (Desyrel Tab*) 50 mg PO BEDTIME PRN PRN Reason: SLEEP Last Admin: 05/09/17 22:13 Dose: 50 mg Voriconazole (Vfend (Nf)) 200 mg PO Q12H [facility] Last Admin: 05/11/17 21:43 Dose: 200 mg Assessment: 81 yo male with pancreatic cancer stable by imaging admitted with SOB and found to have fungal pneumonia. He is very marginally better. He has a very flat affect and I am concerned that part of his slow recovery is driven by depression. Plan: 1. PNA: coverage per abx., but may be able to transition to PO (s/p 10 days IV abx. and day 5 Voriconazole) 2. Emphysema/pneumonitis: may be underlying cause of SOB therefore will add inh. LABA with steroid and start anti-cholinergic nebs 3. Edema: in general anasarcic, but still orally very dry. do not want to push diuretics 4. Weakness: d/c to sub acute rehab, cont. PT as tolerated 5. Lung Cancer: chemo on hold, although imaging [facility] most recently
[2017-05-12 09:50] LABS: Hematocrit 32 % (42-52); Hemoglobin 10.5 g/dl (14.0-18.0); Mean Corpuscular HGB Conc 33 g/dl (31-36); Mean Corpuscular Hemoglobin 34 pg (27-31); Mean Corpuscular Volume 101 fL (80-94); Mean Platelet Volume 9 um3 (7.4-10.4); Red Blood Count 3.13 10^6/ul (4.0-5.4); Red Cell Distribution Width 19 % (10.5-15); White Blood Count 11.6 10^3/ul (3.5-10.8)
[2017-05-12 09:51] LABS: Add Diff/Slide Review? Slide Review Added; Comments Flag Yes
[2017-05-12 10:01] LABS: BUN/Creatinine Ratio 25.8 (8-20); Calcium 8.9 mg/dL (8.6-10.3); EGFR African American 149.4 (>60); EGFR Non-African American 116.1 (>60); Potassium 4.2 mmol/L (3.5-5.0)
[2017-05-12] MEDS: Latanoprost 0.005%* 2.5 ml BTL RIGHT EYE SCH (21:38)
[2017-05-12] MEDS: Morphine INJ* 2 MG/ML 1 ML SYRINGE IV PRN (21:40)
[2017-05-12] MEDS: traZODone TAB* 50 MG TAB PO PRN (21:43)
[2017-05-12] MEDS: cefTRIAXone VIAL(*) 1,000 MG in NS 0.9% 50 ML* 50 ML IVPB SCH (23:21)
[2017-05-13] MEDS: Ipratropium 0.5MG/2.5ML NEB* 0.5 MG/2.5 ML NEB.SOLN INH SCH ×6 (02:37→23:30)
[2017-05-13 06:42] LABS: Hematocrit 28 % (42-52); Hemoglobin 9.5 g/dl (14.0-18.0); Mean Corpuscular HGB Conc 33 g/dl (31-36); Mean Corpuscular Hemoglobin 34 pg (27-31); Mean Corpuscular Volume 101 fL (80-94); Mean Platelet Volume 9 um3 (7.4-10.4); Red Blood Count 2.83 10^6/ul (4.0-5.4); Red Cell Distribution Width 18 % (10.5-15); White Blood Count 9.6 10^3/ul (3.5-10.8)
[2017-05-13 06:43] LABS: Add Diff/Slide Review? Slide Review Added; Comments Flag Yes
[2017-05-13 06:54] LABS: BUN/Creatinine Ratio 27.9 (8-20); Calcium 8.5 mg/dL (8.6-10.3); EGFR African American 163.6 (>60); EGFR Non-African American 127.2 (>60); Magnesium 2.2 mg/dL (1.9-2.7); Potassium 4.1 mmol/L (3.5-5.0)
[2017-05-13 07:14] LABS: Hypochromasia 1+; Immature Granulocytes 3 % (0-9); Macrocytosis 1+; Myelocytes % 3 % (0-1); Neutrophil % 80 % (38-83)
[2017-05-13] MEDS: Mometasone/Formoter 200/5 MDI INH SCH ×2 (07:15→19:20)
[2017-05-13] MEDS: Morphine INJ* 2 MG/ML 1 ML SYRINGE IV PRN ×2 (09:50→21:45)
[2017-05-13] MEDS: Aspirin EC Low Dose* 81 MG TAB.EC PO SCH (10:03)
[2017-05-13] MEDS: VORICONAZOLE 50 MG PO SCH ×2 (10:03→23:08)
[2017-05-13] MEDS: CMCS: Pantoprazole TAB (NF) 40 MG TAB PO SCH (10:03)
[2017-05-13] MEDS: FLUoxetine CAP* 10 MG PO SCH (10:03)
[2017-05-13] MEDS: predniSONE TAB* 50 MG PO SCH (10:03)
[2017-05-13] MEDS: Nystatin SUSPENSION* 100000 UNITS/ML 5 ML UDC PO SCH ×4 (10:05→23:01)
[2017-05-13] MEDS: Enoxaparin(*) 40 MG/0.4 ML SYR SUBCUT SCH (10:08)
--- NOTE | 2017-05-13 13:11 | PN ---
Subjective Date of Service: 05/13/17 Interval History: Patient says he still has a cough and is sob. Says he feels only slightly better Objective Active Medications: Aspirin (Aspirin Ec Low Dose*) 81 mg PO DAILY [facility] Last Admin: 05/13/17 10:03 Dose: 81 mg Enoxaparin Sodium (Lovenox(*)) 40 mg SUBCUT Q24H [facility] Last Admin: 05/13/17 10:08 Dose: 40 mg Fluoxetine HCl (Prozac Cap*) 10 mg PO DAILY [facility] Last Admin: 05/13/17 10:03 Dose: 10 mg Guaifenesin/Codeine Phosphate (Robitussin Ac 100mg-10mg*) 5 ml PO Q6H PRN PRN Reason: COUGH Last Admin: 05/03/17 23:25 Dose: 5 ml Heparin Sodium (Porcine) (Heparin Flush Picc/Ml/Cvc(*)) 0 ml IV FLUSH 0600, 1800 [facility] PRN Reason: Protocol Last Admin: 05/13/17 06:14 Dose: 1 ml Ceftriaxone Sodium 1,000 mg/ (Sodium Chloride) 50 mls @ 200 mls/hr IVPB Q24H [facility] Last Admin: 05/12/17 23:21 Dose: 200 mls/hr Ipratropium [place] (Atrovent 0.5 Mg Neb.Randee*) 0.5 mg INH [id number] AWAKE [facility] Last Admin: 05/13/17 11:20 Dose: Not Given Latanoprost (Xalatan 0.005%*) 1 drop RIGHT EYE BEDTIME [facility] Last Admin: 05/12/17 21:38 Dose: Not Given Levalbuterol HCl (Xopenex 1.25 Mg/0.5 Ml Neb.Randee*) 1.25 mg INH Q2H PRN PRN Reason: SHORTNESS OF BREATH Last Admin: 05/07/17 08:28 Dose: 1.25 mg Mometasone Furoate/Formoterol Fumar (Dulera 200/5 Mdi*) 2 puff INH BID [facility] Last Admin: 05/13/17 07:15 Dose: Not Given Morphine Sulfate (Morphine Inj (Syringe)*) 2 mg IV Q4H PRN PRN Reason: PAIN/SOB Last Admin: 05/13/17 09:50 Dose: 2 mg Nystatin (Nystatin Suspension*) 1,000,000 units PO QID [facility] Stop: 05/16/17 10:28 Last Admin: 05/13/17 10:05 Dose: Not Given Ondansetron HCl (Zofran Inj*) 4 mg IV Q4H PRN PRN Reason: NAUSEA Last Admin: 05/13/17 09:50 Dose: 4 mg Pantoprazole Sodium (Protonix Tab (Nf)) 40 mg PO DAILY [facility] Last Admin: 05/13/17 10:03 Dose: 40 mg Prednisone (Deltasone Tab*) 50 mg PO DAILY [facility] Last Admin: 05/13/17 10:03 Dose: 50 mg Trazodone HCl (Desyrel Tab*) 50 mg PO BEDTIME PRN PRN Reason: SLEEP Last Admin: 05/12/17 21:43 Dose: 50 mg Voriconazole (Vfend (Nf)) 200 mg PO Q12H [facility] Last Admin: 05/13/17 10:03 Dose: 200 mg Vital Signs 05/12/17 05/12/17 05/12/17 15:57 16:17 19:27 Temperature 97.3 F Pulse Rate 54 64 99 Respiratory 22 18 Rate Blood Pressure 95/51 (mmHg) O2 Sat by Pulse 92 98 Oximetry 05/12/17 05/12/17 05/12/17 20:05 21:40 22:18 Temperature 97.7 F 97.8 F Pulse Rate 94 90 Respiratory 22 22 22 Rate Blood Pressure 101/52 91/49 (mmHg) O2 Sat by Pulse 100 99 Oximetry 05/12/17 05/13/17 05/13/17 22:40 00:42 07:30 Temperature 97.6 F Pulse Rate 79 Respiratory 16 22 20 Rate Blood Pressure 98/49 (mmHg) O2 Sat by Pulse 100 Oximetry 05/13/17 05/13/17 05/13/17 08:00 09:50 10:50 Temperature Pulse Rate Respiratory 20 20 20 Rate Blood Pressure (mmHg) O2 Sat by Pulse Oximetry Oxygen Devices in Use Now: Nasal Cannula Appearance: Elderly gentleman sitting up in bed but in NAD Eyes: No Scleral Icterus Ears/Nose/Mouth/Throat: Mucous Membranes Moist Neck: No Thyroid Enlargement, Masses Respiratory: Clear to Auscultation Cardiovascular: - - S1S2 destin Abdominal: NL Sounds; No Tenderness; No Distention, No Hepatosplenomegaly Lymphatic: No Cervical Adenopathy Extremities: No Edema Skin: No Rash or Ulcers Neurological: Alert and Oriented x 3 Result Diagrams: 05/13/17 06:30 05/13/17 06:30 Additional Lab and Data: Lab Results 05/03/17 05/03/17 05/03/17 Range/Units 18:35 18:35 18:35 WBC 12.0 H (3.5-10.8) 10^3/ul RBC 3.10 L (4.0-5.4) 10^6/ul Hgb 10.2 L (14.0-18.0) g/dl Hct 32 L (42-52) % MCV 102 H (80-94) fL MCH 33 H (27-31) pg MCHC 32 (31-36) g/dl RDW 20 H (10.5-15) % Plt Count 386 (150-450) 10^3/ul MPV 9 (7.4-10.4) um3 Neut % (Auto) 86.7 H (38-83) % Lymph % (Auto) 2.8 L (25-47) % [place] % (Auto) 10.4 H (1-9) % Eos % (Auto) 0 (0-6) % Baso % (Auto) 0.1 (0-2) % Absolute Neuts (auto) 10.4 H (1.5-7.7) 10^3/ul Absolute Lymphs (auto) 0.3 L (1.0-4.8) 10^3/ul Absolute Monos (auto) 1.2 H (0-0.8) 10^3/ul Absolute Eos (auto) 0 (0-0.6) 10^3/ul Absolute Basos (auto) 0 (0-0.2) 10^3/ul Absolute Nucleated RBC 0.09 10^3/ul Nucleated RBC % 0.8 INR (Anticoag Therapy) (0.89-1.11) Sodium 136 (133-145) mmol/L Potassium 4.1 (3.5-5.0) mmol/L Chloride 99 L (101-111) mmol/L Carbon Dioxide 28 (22-32) mmol/L Anion Gap 9 (2-11) mmol/L BUN 21 (6-24) mg/dL Creatinine 0.90 (0.67-1.17) mg/dL Est GFR ( Amer) 104.4 (>60) Est GFR (Non-Af Amer) 81.2 (>60) BUN/Creatinine Ratio 23.3 H (8-20) Glucose 126 H (70-100) mg/dL Lactic Acid 2.0 (0.5-2.0) mmol/L Calcium 9.8 (8.6-10.3) mg/dL Total Bilirubin 0.60 (0.2-1.0) mg/dL AST 21 (13-39) U/L ALT 16 (7-52) U/L Alkaline Phosphatase 71 (34-104) U/L Troponin I 0.03 (<0.04) ng/mL B-Natriuretic Peptide ( - 100) pg/mL Total Protein 6.2 L (6.4-8.9) g/dL Albumin 3.4 (3.2-5.2) g/dL Globulin 2.8 (2-4) g/dL Albumin/Globulin Ratio 1.2 (1-3) 05/03/17 05/03/17 Range/Units 18:35 18:35 WBC (3.5-10.8) 10^3/ul RBC (4.0-5.4) 10^6/ul Hgb (14.0-18.0) g/dl Hct (42-52) % MCV (80-94) fL MCH (27-31) pg MCHC (31-36) g/dl RDW (10.5-15) % Plt Count (150-450) 10^3/ul MPV (7.4-10.4) um3 Neut % (Auto) (38-83) % Lymph % (Auto) (25-47) % [place] % (Auto) (1-9) % Eos % (Auto) (0-6) % Baso % (Auto) (0-2) % Absolute Neuts (auto) (1.5-7.7) 10^3/ul Absolute Lymphs (auto) (1.0-4.8) 10^3/ul Absolute Monos (auto) (0-0.8) 10^3/ul Absolute Eos (auto) (0-0.6) 10^3/ul Absolute Basos (auto) (0-0.2) 10^3/ul Absolute Nucleated RBC 10^3/ul Nucleated RBC % INR (Anticoag Therapy) 1.06 (0.89-1.11) Sodium (133-145) mmol/L Potassium (3.5-5.0) mmol/L Chloride (101-111) mmol/L Carbon Dioxide (22-32) mmol/L Anion Gap (2-11) mmol/L BUN (6-24) mg/dL Creatinine (0.67-1.17) mg/dL Est GFR ( Amer) (>60) Est GFR (Non-Af Amer) (>60) BUN/Creatinine Ratio (8-20) Glucose (70-100) mg/dL Lactic Acid (0.5-2.0) mmol/L Calcium (8.6-10.3) mg/dL Total Bilirubin (0.2-1.0) mg/dL AST (13-39) U/L ALT (7-52) U/L Alkaline Phosphatase (34-104) U/L Troponin I (<0.04) ng/mL B-Natriuretic Peptide 302 H ( - 100) pg/mL Total Protein (6.4-8.9) g/dL Albumin (3.2-5.2) g/dL Globulin (2-4) g/dL Albumin/Globulin Ratio (1-3) Microbiology and Other Data: Microbiology 05/04/17 05:02 Aerobic Blood Culture - Final Blood Venous No Growth Day 5 Anaerobic Blood Culture - Final No Growth Day 5 Blood Culture - Final 05/04/17 04:00 Gram Stain - Final Sputum Expectorated Sputum Culture - Final MOLD Normal Mikayla 05/04/17 08:55 Legionella Urinary Antigen - Final Urine Negative Legionella Streptococcus pneumoniae Ag Screen - Final Negative S. pneumo Antigen Assess/Plan/Problems-Billing Assessment: 81 year old gentleman with lung cancer found to have fungal pneumonia. - Patient Problems (1) Fungal pneumonia Current Visit: Yes Status: Acute Code(s): B49 - UNSPECIFIED MYCOSIS; J17 - PNEUMONIA IN DISEASES CLASSIFIED ELSEWHERE SNOMED Code(s): 580395605 Comment: Awaiting culture results from [facility]. Continue Voriconazole. Mild improvement (2) Lung cancer Current Visit: Yes Status: Acute Code(s): C34.90 - MALIGNANT NEOPLASM OF UNSP PART OF UNSP BRONCHUS OR LUNG SNOMED Code(s): 442816655 Comment: Management as per oncology. (3) DVT prophylaxis Current Visit: Yes Status: Acute Code(s): MQS1482 - SNOMED Code(s): 685054111 Comment: Continue Lovenox (4) DNR (do not resuscitate) Current Visit: Yes Status: Acute
[2017-05-13] MEDS: cefTRIAXone VIAL(*) 1,000 MG in NS 0.9% 50 ML* 50 ML IVPB SCH (21:45)
[2017-05-13] MEDS: traZODone TAB* 50 MG TAB PO PRN (21:46)
[2017-05-13] MEDS: Latanoprost 0.005%* 2.5 ml BTL RIGHT EYE SCH (23:01)
[2017-05-13] MEDS ORDERED: Ipratropium 0.5MG/2.5ML NEB* 0.5 MG/2.5 ML NEB.SOLN INH PRN (23:46)
[2017-05-14] MEDS: Aspirin EC Low Dose* 81 MG TAB.EC PO SCH (08:30)
[2017-05-14] MEDS: CMCS: Pantoprazole TAB (NF) 40 MG TAB PO SCH (08:31)
[2017-05-14] MEDS: Nystatin SUSPENSION* 100000 UNITS/ML 5 ML UDC PO SCH (08:31)
[2017-05-14] MEDS: FLUoxetine CAP* 10 MG PO SCH (08:31)
[2017-05-14] MEDS: VORICONAZOLE 50 MG PO SCH ×2 (08:32→21:35)
[2017-05-14] MEDS: predniSONE TAB* 50 MG PO SCH (08:32)
[2017-05-14] MEDS: Enoxaparin(*) 40 MG/0.4 ML SYR SUBCUT SCH (08:35)
[2017-05-14] MEDS: Mometasone/Formoter 200/5 MDI INH SCH ×2 (08:56→19:45)
[2017-05-14] MEDS ORDERED: Sodium Phosphate ADULT ENEMA* 118 ml bottle PR ONE (12:00)
[2017-05-14] MEDS ORDERED: Sodium Phosphate ADULT ENEMA* 118 ml bottle PR PRN (19:27)
[2017-05-14] MEDS: Morphine INJ* 2 MG/ML 1 ML SYRINGE IV PRN (21:35)
[2017-05-14] MEDS: traZODone TAB* 50 MG TAB PO PRN (21:35)
[2017-05-14] MEDS: Latanoprost 0.005%* 2.5 ml BTL RIGHT EYE SCH (21:45)
--- NOTE | 2017-05-14 23:34 | DS ---
DISCHARGE SUMMARY: DATE OF ADMISSION: 05/03/17 DATE OF DISCHARGE: 05/14/17 ATTENDING PHYSICIAN: Dr. Aponte * (DICTATED BY JIMMY MAURICIO) PRINCIPAL DIAGNOSES: 1. Pneumonia. 2. Pancreatic cancer, status post chemotherapy. 3. Emphysema/pneumonitis. 4. Edema. 5. Generalized weakness. 6. Lung cancer. DISCHARGE MEDICATIONS: Will include: 1. Aspirin 81 mg p.o. daily. 2. Fluoxetine 10 mg daily. 3. Ipratropium metered dose inhaler 0.5 mg inhaled every 4 hours as needed. 4. Latanoprost 0.005% one drop in the right eye twice daily. 5. Levalbuterol 1.25 mg inhaled every 2 hours as needed. 6. Mometasone furoate 2 puffs inhaled twice daily. 7. Ondansetron 4 mg p.o. every 6 hours as needed for nausea. 8. Pantoprazole 40 mg daily. 9. Voriconazole 200 mg p.o. every 12 hours x14 days. 10. Prednisone 50 mg p.o. daily with 10 mg taper every week until off. 11. Trazodone 50 mg at bedtime p.r.n. sleep. HOSPITAL COURSE: Briefly, the patient was admitted to the hospital for shortness of breath and nausea status post chemotherapy for his lung cancer and was found to have pneumonia and was pancultured and placed on antibiotic therapy of broad-based spectrum. He did have a sputum culture that was significant for mold and was placed on voriconazole until the identification can come back from [facility] in [place], [place]. He did have negative legionella and Strep pneumo antigens and no growth in his blood cultures x2 sets. However, was placed on ceftriaxone and had remained afebrile throughout the course of his remaining stay. The patient did have a low sodium level, which corrected with aggressive fluid hydration and a C-reactive protein that was elevated on 05/09/17. The patient also had an elevated white blood cell count to a maximum of 15.8, which normalized with antibiotic therapy to 9.6. He has remained anemic throughout the course of his stay with a range of anemia 8.1 to 10.5 and platelets have remained within normal level throughout his stay. Significant radiographic studies included a chest x-ray on 05/03/17, a transthoracic echocardiogram secondary to his shortness of breath, which revealed an ejection fraction of 55% to 60%, which was limited by poor acoustic windows and along with a chest CT scan on 05/06/17, which did reveal a stable right mediastinal cavitary mass, new interstitial alveolar changes which was superimposed by an acute pneumonitis, extensive emphysematous changes with areas of chronic scarring and nonobstructive right renal stone incidentally. Consultation was then initiated with Dr. Gray for antibiotic counseling. It was decided that he should go on voriconazole secondary to the mold until the mold has been identified. Throughout the course of his stay, the patient did not significantly improve and will need acute rehab and has been offered a bed over at [facility] to regain his strength. He will not be receiving any chemotherapy until his strength and performance status have improved and he has been discharged from the skilled facility. He will follow up with Dr. Tom in approximately 2 to 3 weeks to see how he is doing or sooner if needed. The patient's vital signs were stable and he was afebrile on the day of his discharge. JIMMY MAURICIO [id number]/[facility] #: [id number] BERNADETTE
[2017-05-15] MEDS: Mometasone/Formoter 200/5 MDI INH SCH ×2 (08:42→20:54)
[2017-05-15] MEDS: CMCS: Pantoprazole TAB (NF) 40 MG TAB PO SCH (09:01)
[2017-05-15] MEDS: predniSONE TAB* 50 MG PO SCH (09:01)
[2017-05-15] MEDS: Aspirin EC Low Dose* 81 MG TAB.EC PO SCH (09:01)
[2017-05-15] MEDS: FLUoxetine CAP* 10 MG PO SCH (09:01)
[2017-05-15] MEDS: VORICONAZOLE 50 MG PO SCH ×2 (09:02→20:27)
[2017-05-15] MEDS: Enoxaparin(*) 40 MG/0.4 ML SYR SUBCUT SCH (09:02)
[2017-05-15] MEDS: Morphine INJ* 2 MG/ML 1 ML SYRINGE IV PRN (20:26)
[2017-05-15] MEDS: Latanoprost 0.005%* 2.5 ml BTL RIGHT EYE SCH (20:27)
[2017-05-15] MEDS: traZODone TAB* 50 MG TAB PO PRN (20:27)
[2017-05-16 07:54] VITALS: BP 103/59
[2017-05-16] MEDS: Aspirin EC Low Dose* 81 MG TAB.EC PO SCH (08:23)
[2017-05-16] MEDS: predniSONE TAB* 50 MG PO SCH (08:23)
[2017-05-16] MEDS: Enoxaparin(*) 40 MG/0.4 ML SYR SUBCUT SCH (08:23)
[2017-05-16] MEDS: CMCS: Pantoprazole TAB (NF) 40 MG TAB PO SCH (08:23)
[2017-05-16] MEDS: FLUoxetine CAP* 10 MG PO SCH (08:23)
[2017-05-16] MEDS: VORICONAZOLE 50 MG PO SCH (08:24)
[2017-05-16] MEDS: Mometasone/Formoter 200/5 MDI INH SCH (08:48)
== END 2017-05-16 10:40 | DRG 190 ==
LOC: ED 17:32 → MED 19:31
PROVIDERS: ADMIT Internal Medicine; ATTEND Internal Medicine Hematology & Oncology
PROC: 30233N1 Transfusion of Nonautologous Red Blood Cells into Peripheral Vein, Percutaneous Approach (ICD-10-PCS; principal; 2017-05-11)
DX: J44.0 Chronic obstructive pulmonary disease with (acute) lower respiratory infection (principal); J18.9 Pneumonia, unspecified organism; J96.01 Acute respiratory failure with hypoxia; E86.0 Dehydration; C34.90 Malignant neoplasm of unspecified part of unspecified bronchus or lung; B49 Unspecified mycosis; D64.9 Anemia, unspecified; F32.9 Major depressive disorder, single episode, unspecified; N20.0 Calculus of kidney; F17.210 Nicotine dependence, cigarettes, uncomplicated; R53.1 Weakness; Z85.46 Personal history of malignant neoplasm of prostate; Z88.1 Allergy status to other antibiotic agents; Z88.0 Allergy status to penicillin; Z82.49 Family history of ischemic heart disease and other diseases of the circulatory system; Z85.828 Personal history of other malignant neoplasm of skin; Z66 Do not resuscitate; Z79.82 Long term (current) use of aspirin; Z85.07 Personal history of malignant neoplasm of pancreas
CPT/HCPCS: 0521F; 1036F; 1125F; 36415; 71010; 71250; 80048; 80053; 83605; 83735; 83880; 84134; 84145; 84484; 85025; 85610; 86140; 86850; 86900; 86901; 86922; 87040; 87070; 87107; 87205; 87899; 93005; 93306; 94640; 94760; 99212; 99214; 99232; 99239; 99406; A9270-GY; C1751; C8929; G0463; G8427; J0456; J0692; J0696; J1644; J1650; J1940; J2270; J2405; J2930; J3465; J7512; J7644; J8540; P9040